=== PATIENT | female | born 1935 | race Caucasian/White ===

== ENCOUNTER 2017-08-30 11:32 | Inpatient (IN) | payer OTHER ==
[~2017-08-30] VITALS: Ht 152.4 cm; Wt 70.1 kg
[~2017-08-30 11:32] MED LIST: NORCO 325 MG-51 TAB PO; PEPCID20 MG PO; WALKER
--- NOTE | 2017-08-30 12:25 | RADIOLOGY REPORT ---
EXAMINATION:\H\ \N\XR CHEST CLINICAL INFORMATION: Febrile cough. COMPARISON: None TECHNIQUE: Frontal view of the chest was obtained. FINDINGS: The lungs are well-expanded with prominent bilateral bronchovascular markings likely small airway disease. No focal consolidation or effusion seen. The heart size and pulmonary vascularity is normal. There is moderate spondylosis dorsal spine. IMPRESSION: Bilateral prominent bronchovascular markings suggestive of reactive airway disease. No acute consolidation or effusion seen.
[2017-08-30 12:28] LABS: ABSOLUTE BASOPHIL COUNT 0 /CUMM (0.0-0.2); ABSOLUTE EOSINOPHIL COUNT 0 /CUMM (0.0-0.7); ABSOLUTE GRANULOCYTE CT 7.5 /CUMM (1.4-6.5); ABSOLUTE LYMPH COUNT 0.7 /CUMM (1.2-3.4); ABSOLUTE MONOCYTE COUNT 0.6 /CUMM (0.10-0.60); BASOPHIL % 0.5 % (0.0-2.0); EOSINOPHIL % 0 % (0-5); HEMATOCRIT 35.9 % (37-47); MEAN CORPUSCULAR HGB CONC 33.6 G/DL (33.0-37.0); MEAN CORPUSCULAR VOLUME 80.5 FL (81.0-99.0); PLATELET COUNT 211 /CUMM (130-400); RBC DISTRIBUTION WIDTH 13.5 % (11.5-14.5); RED BLOOD CELL CT 4.46 /CUMM (4.20-5.40); WHITE BLOOD CELL COUNT 8.8 /CUMM (4.8-10.8)
--- NOTE | 2017-08-30 12:59 | ED DYSPNEA/ASTHMA COMPLAINT ---
History of Present Illness General Chief Complaint: General Adult Stated Complaint: SENT IN BY URGENT CARE FOR ILLNESS Source: patient Exam Limitations: language barrier Vital Signs & Intake/Output Vital Signs & Intake/Output Vital Signs Date Time Temp Pulse Resp B/P B/P Pulse O2 O2 Flow FiO2 Mean Ox Delivery Rate 08/30 1837 99.9 08/30 1807 93 Nasal 2.0L Cannula 08/30 1742 102.7 95 20 128/60 93 Nasal Cannula 08/30 1706 103.0 08/30 1646 103.0 94 24 133/63 96 Nasal 2.0L Cannula 08/30 1457 100.3 108 20 132/61 05/30 1456 108 20 132/61 96 Nasal 2.0L Cannula 08/30 1444 104 20 124/59 96 Nasal 2.0L Cannula 08/30 1425 100.3 150 20 129/62 05/30 1420 150 20 129/62 93 Room Air 08/30 1345 95 / 1300 100.3 106 20 132/62 94 08/30 1253 93 Room Air 08/30 1142 102.3 116 22 126/66 92 Room Air Allergies Coded Allergies: Penicillins (UNKNOWN 08/30/17) soap (MUST USE FRAGRANCE FREE SOAP FOR BODY, HAIR AND LAUNDRY 08/30/17) Reconcile Medications Cholecalciferol (Vitamin D3) (Vitamin D) 1,000 UNIT TABLET 1 TAB PO DAILY SUPPLEMENT (Reported) Lansoprazole 30 MG CAPSULE. 1 CAP PO DAILY GI (Reported) Levothyroxine Sodium 50 MCG TABLET 1 TAB PO DAILY THYROID (Reported) Triage Note: PT SIB URGENT CARE FOR CXR TO R/O PNEUMONIA. PT IS FEBRILE IN TRIAGE, LIGHTHEADED, SOB. DENIES CP Triage Nurses Notes Reviewed? yes Onset: Abrupt Duration: day(s): Timing: recent history Severity: moderate Activities at Onset: none HPI: 82-year-old female comes into emergency room for further evaluation of shortness of breath and cough. Patient reports symptoms began going on for the past couple days. She's had associated fever chills body aches. She denies any chest pain. She has a history of hypothyroid denies any other past medical history. She is a poor historian and there is a language barrier. Friend used for translation. (Audi Agrawal) Past History Travel History Traveled to [place] past 21 day No Medical History Any Pertinent Medical History? see below for history Cardiovascular: MURMUR Gastrointestinal: GERD Endocrine: hypothyroidism Surgical History Surgical History: non-contributory Psychosocial History What is your primary language Bruneian Tobacco Use: Never used ETOH Use: denies use Illicit Drug Use: denies illicit drug use Family History Hx Contributory? No (Audi Agrawal) Review of Systems Review of Systems Constitutional: Reports: no symptoms. EENTM: Reports: no symptoms. Respiratory: Reports: see HPI. Cardiovascular: Reports: see HPI. GI: Reports: no symptoms. Genitourinary: Reports: no symptoms. Musculoskeletal: Reports: no symptoms. Skin: Reports: no symptoms. Neurological/Psychological: Reports: no symptoms. Hematologic/Endocrine: Reports: no symptoms. Immunologic/Allergic: Reports: no symptoms. All Other Systems: Reviewed and Negative (Audi Agrawal) Physical Exam Physical Exam General Appearance: well developed/nourished, alert, awake Head: atraumatic Eyes: Bilateral: normal appearance. Ears, Nose, Throat: normal ENT inspection, hearing grossly normal Neck: normal inspection Respiratory: normal breath sounds, no respiratory distress Cardiovascular: regular rate/rhythm, tachycardia Gastrointestinal: soft Extremities: normal inspection Neurologic/Psych: awake, alert, oriented x 3 Skin: intact, normal color Core Measures ACS in differential dx? No CVA/TIA Diagnosis No Sepsis Present: No Sepsis Focused Exam Completed? No (Audi Agrawal) Progress Differential Diagnosis: asthma, AMI, bronchitis, COPD, pericarditis, pneumonia, pneumothorax Plan of Care: Orders Procedure Date/time Status Heart Healthy Diet 08/31 B Active CBC WITHOUT DIFFERENTIAL 08/31 06 Active BASIC ELECTROLYTES PLUS BUN&CR 08/31 0600 Active Heart Healthy Diet 08/30 D Complete PARTIAL THROMBOPLASTIN TIME 08/30 2100 Active Pathway - chart 08/30 1854 Active House Staff 08/30 1854 Active EKG 08/30 1854 Active Code Status 08/30 1854 Active Heparin Drip- AFIB/FLUTTER/PE/ 08/30 1820 Active STREP PNEUMO URINARY ANTIGEN 08/30 1819 Active LEGIONELLA URINARY ANTIGEN 08/30 1819 Active LOWER RESPIRATORY CULTURE 08/30 1819 Active Weight 08/30 1806 Active Vital Signs 08/30 1806 Active Teach/Educate 08/30 1806 Active Pain Treatment and Response 08/30 1806 Active Nutritional Intake, Monitor 08/30 1806 Active Isolation 08/30 1806 Active Intake & Output 08/30 1806 Active Patient Care Conference 08/30 1806 Active Activity/Ambulation 08/30 1806 Active Vital Signs 08/30 1742 Active LACTIC ACID 08/30 1600 Complete Patient Data 08/30 1542 Active ED Holding Orders 08/30 1515 Active Admit to inpatient 08/30 1515 Active Code Status 08/30 1515 Complete Add-on Test (ER Only) 08/30 1411 Active EKG 08/30 1402 Active AEROSOL (GEN) 08/30 1347 Complete Add-on Test (ER Only) 08/30 1340 Active Intake & Output 08/30 1253 Active PARTIAL THROMBOPLASTIN TIME 08/30 1214 Complete PROTHROMBIN TIME 08/30 1214 Complete LACTIC ACID 08/30 1214 Complete BLOOD CULTURE 08/30 1142 Active TROPONIN LEVEL 08/30 1142 Complete COMPREHENSIVE METABOLIC PANEL 08/30 1142 Complete CBC WITHOUT DIFFERENTIAL 08/30 1142 Complete EKG 08/30 1142 Active BLOOD CULTURE 08/30 1130 Active TRC EVALUATION (GEN) 08/30 UNK Active Current Medications Sig/Denzel Start time Last Medication Dose Stop Time Status Admin Azithromycin 500 MG DAILY 08/31 09 AC (Zithromax) Sodium Chloride 250 ML (Normal Saline 0.9%) Ceftriaxone Sodium 1,000 MG DAILY 08/31 899 AC (Rocephin) Cholecalciferol 400 IU DAILY 08/31 09 AC (Vitamin D) Levothyroxine Sodium 0.05 MG DAILY 08/31 09 AC (Synthroid) Omeprazole 40 MG DAILY AC 08/31 0700 AC (Prilosec) Sodium Chloride 1,000 ML Q13H 08/30 1930 UNVr (Normal Saline 0.9%) Heparin Sodium 25,000 UNIT Q24H 08/30 1430 AC 08/30 (Porcine) 1502 (Heparin) Sodium Chloride 500 ML Laboratory Tests 08/30/17 1630: Lactic Acid 1.1 08/30/17 1300: Lactic Acid Cancelled 08/30/17 1214: Anion Gap 15, Estimated GFR 43 L, BUN/Creatinine Ratio 17.5, Glucose 126 H, Lactic Acid 1.3, Calcium 8.2 L, Total Bilirubin 0.6, AST 25, ALT 24, Alkaline Phosphatase 63, Troponin I 0.06, Total Protein 7.1, Albumin 4.0, Globulin 3.1, Albumin/Globulin Ratio 1.3, PT 14.1 H, INR 1.29 H, APTT 28, CBC w Diff MAN DIFF ORDERED, RBC 4.46, MCV 80.5 L, MCH 27.0, MCHC 33.6, RDW 13.5, MPV 8.0, Gran % 85.0 H, Lymphocytes % 8.2 L, Monocytes % 6.3, Eosinophils % 0, Basophils % 0.5, Absolute Granulocytes 7.5 H, Segmented Neutrophils 74, Band Neutrophils 7 H, Absolute Lymphocytes 0.7 L, Lymphocytes 10 L, Monocytes 8, Absolute Monocytes 0.6, Absolute Eosinophils 0, Basophils 1, Absolute Basophils 0, Platelet Estimate ADEQUATE, Hypochromic-Microcytic 1+ Microbiology 08/30 1818 URINE ROUT: Legionella Antigen - ORD 08/30 1818 URINE ROUT: Streptococcus pneumoniae Antigen (M - ORD 08/30 1818 LOWER RESP: Respiratory Culture - ORD 08/30 1818 LOWER RESP: Gram Stain - ORD 08/30 1356 BLOOD: Blood Culture - RECD 08/30 121 BLOOD: Blood Culture - RECD Diagnostic Imaging: Viewed by Me: Radiology Read. Discussed w/RAD: Radiology Read. Radiology Impression: PATIENT: RADHA WILSON PRESENT AGE: 82 PATIENT ACCOUNT NO: [id number] : 35 LOCATION: [facility] ORDERING PHYSICIAN: Jackson Zamora DO (TBS) SERVICE DATE: 08/30/17 EXAM TYPE: RAD - XRY-CHEST XRAY, SINGLE VIEW EXAMINATION:\H\ \N\XR CHEST CLINICAL INFORMATION: Febrile cough. COMPARISON: None TECHNIQUE: Frontal view of the chest was obtained. FINDINGS: The lungs are well-expanded with prominent bilateral bronchovascular markings likely small airway disease. No focal consolidation or effusion seen. The heart size and pulmonary vascularity is normal. There is moderate spondylosis dorsal spine. IMPRESSION: Bilateral prominent bronchovascular markings suggestive of reactive airway disease. No acute consolidation or effusion seen. DICTATED BY: Nimo SANTANA,Krishan DATE/TIME DICTATED:08/30/171218 PRESS ASSISTANT AND FEEDER:NATALIE DATE/TIME TRANSCRIBED:1218 CONFIDENTIAL, DO NOT COPY WITHOUT APPROPRIATE AUTHORIZATION. < Electronically signed in Other Vendor System> SIGNED BY: Nimo SANTANA,Krishan 1225 Initial ED EKG: normal sinus rhythm, rate (109), nonspecific ST T wave chg Repeat EKG: changed (afib, rate 144) (Audi Agrawal) Departure Departure Disposition: STILL A PATIENT Condition: Stable Clinical Impression Primary Impression: Pneumonia Secondary Impressions: Rapid atrial fibrillation Referrals: Sonam Masters MD (PCP/Family) Departure Forms: Customer Survey General Discharge Information Admission Note Spoke With: Esther Lin MD Documentation of Exam: Documentation of any treatments & extenuating circumstances including Concerns Regarding Discharge (functional status, medication knowledge or non-compliance, living conditions, etc.) that warrant an admission rather than observation: Patient require cardiac telemetry. IV antibiotics. Supplemental oxygen. Pulmonary consult. Cardiology consultation. IV heparin. Serial troponins. Medically not safe for discharge. Patient converted back to normal rhythm after metoprolol but will still require anticoagulation and telemetry. (Audi Agrawal) PA/ROAD GRADER OPERATOR Co-Sign Statement Statement: ED Attending supervision documentation- x I saw and evaluated the patient. I have also reviewed all the pertinent lab results and diagnostic results. I agree with the findings and the plan of care as documented in the PA's/ROAD GRADER OPERATOR's documentation. I have reviewed the ED Record and agree with the PA's/ROAD GRADER OPERATOR's documentation. Is afebrile with the ultimate diagnosis Additions or exceptions (if any) to the PAs/ROAD GRADER OPERATOR's note and plan are summarized below: I evaluated the patient and followed along with her progress including conversion from atrial fibrillation with RVR after her nebulizer treatments to normal sinus rhythm after intravenous metoprolol. I agree with the plan for admission to critical care. Critical care time spent > 30 minutes. The patient was suffering from a critical illness that acutely impairs one or more vital organ systems and there is a high probability of imminent or life threatening deterioration in the patient's condition. During this time I was personally involved in activities including direct delivery of medical care, consulting multiple specialists, and decision making of high complexity to assess, manipulate, and support vital organ system failure (in this case, pneumonia) and/or to prevent further life threatening deterioration of the patient's condition. The failure to initiate these interventions on an urgent basis would likely result in sudden, clinically significant or life threatening deterioration in the patient's condition. (Trip RODRIGUEZ,Berny) Critical Care Note Critical Care Note Critical Care Time: 30-74 min (45) (Horace HERNADEZ,Audi)
[2017-08-30 14:36] LABS: PT 14.1 SEC (9.4-12.5); PTT 28 SEC (25-37)
[2017-08-30] MEDS ORDERED: LANSOPRAZOLE30 M2 PO (16:21)
[2017-08-30] MEDS ORDERED: LEVOTHYROXINE50 MCG PO (16:22)
[2017-08-30] MEDS ORDERED: VITAMIN D1000 UNIT PO (16:22)
[2017-08-30 17:42] VITALS: BP 128/60
--- NOTE | 2017-08-30 18:39 | History & Physical ---
Eden SANTANA,Leona 08/30/17 7349: General Information and HPI MD Statement: I have seen and personally examined RADHA ALCALA and documented this H&P. The patient is a 82 year old F who presented with a patient stated chief complaint of [weakness, productive cough]. Source of Information: patient, family Exam Limitations: language barrier History of Present Illness: Patient is an Turkish speaking only 82-year-old female with past medical history of hypothyroidism, stage I diastolic dysfunction, asthma, status post cholecystectomy, history of bronchitis presenting this admission with chief complaint of weakness, productive cough. Patient's sister was present at the time of the interview. She reports patient has been feeling increasing weak over the past few days. Reports a 2 day history of productive cough with yellow/green sputum and fever. Reports she had called patient's physician who told her to come to the ED however patient refused. Patient's sister took her to an urgent care facility where she was diagnosed with pneumonia and told to come to the ED. Patient denies chest pain, palpitations, lightheadedness, dizziness, n/v/c/d, abodminal pain, hematuria/dysuria. Patient lives by herself next to her sister. Denies recent sick contacts, recent travel. Denies smoking, alcohol use, illicit drug use. Patient in the ED was found to be in rapid atrial fibrillation. Patient was started on an IV heparin drip. Received metoprolol, IV Ceftriaxone, IV Azithromycin, DuoNeb, IV NS bolus. Allergies/Medications Allergies: Coded Allergies: Penicillins (UNKNOWN 08/30/17) soap (MUST USE FRAGRANCE FREE SOAP FOR BODY, HAIR AND LAUNDRY 08/30/17) Home Med list Cholecalciferol (Vitamin D3) (Vitamin D) 1,000 UNIT TABLET 1 TAB PO DAILY SUPPLEMENT (Reported) Lansoprazole 30 MG CAPSULE.DR 1 CAP PO DAILY GI (Reported) Levothyroxine Sodium 50 MCG TABLET 1 TAB PO DAILY THYROID (Reported) Past History Travel History Traveled to [place] past 21 day No Medical History Blood Transfusion Hx: No Neurological: NONE EENT: NONE Cardiovascular: MURMUR Respiratory: NONE Gastrointestinal: GERD Hepatic: NONE Renal: NONE Musculoskeletal: NONE Psychiatric: NONE Endocrine: hypothyroidism Blood Disorders: NONE Cancer(s): NONE BOILER SHOP SUPERVISOR/Reproductive: NONE Isolation History: Standard Surgical History Surgical History: appendectomy, cholecystectomy Past Family/Social History Psychosocial History Where do you live? Home Smoking Status: Never Smoked ETOH Use: denies use Illicit Drug Use: denies illicit drug use Review of Systems Review of Systems Constitutional: Reports: see HPI. Exam & Diagnostic Data Last 24 Hrs of Vital Signs/I&O Vital Signs Date Time Temp Pulse Resp B/P B/P Pulse O2 O2 Flow FiO2 Mean Ox Delivery Rate 08/30 2138 Nasal 2.0L Cannula 08/30 1837 99.9 08/30 1807 93 Nasal 2.0L Cannula 08/30 1742 102.7 95 20 128/60 93 Nasal Cannula 08/30 1706 103.0 08/30 1646 103.0 94 24 133/63 96 Nasal 2.0L Cannula 08/30 1457 100.3 108 20 132/61 08/30 1456 108 20 132/61 96 Nasal 2.0L Cannula 08/30 1444 104 20 124/59 96 Nasal 2.0L Cannula 08/30 1425 100.3 150 20 129/62 08/30 1420 150 20 129/62 93 Room Air 08/30 1345 95 08/30 1300 100.3 106 20 132/62 94 08/30 1253 93 Room Air 08/30 1142 102.3 116 22 126/66 92 Room Air Intake & Output 08/30 1600 08/30 0800 08/30 0000 Intake Total 0 Output Total Balance 0 Intake, Oral 0 Patient 145 lb Weight Weight Reported by Patient Measurement Method Physical Exam General Appearance Alert, Oriented X3, Cooperative, No Acute Distress Skin No Rashes Skin Temp/Moisture Exam: Warm/Dry Sepsis Skin Exam (color): Normal for Ethnicity HEENT Atraumatic, Mucous Membr. moist/pink Cardiovascular Normal S1, Normal S2, irregular heart rhythm Lungs bilateral rhonchi Abdomen Normal Bowel Sounds, Soft, No Tenderness Neurological Normal Speech, Cranial Nerves 3-12 NL Extremities No Clubbing, No Cyanosis, No Edema, Normal Pulses, No Tenderness/ Swelling Last 24 Hrs of Labs/Rod: Laboratory Tests 08/30/17 1630: Lactic Acid 1.1 08/30/17 1300: Lactic Acid Cancelled 08/30/17 1214: Anion Gap 15, Estimated GFR 43 L, BUN/Creatinine Ratio 17.5, Glucose 126 H, Lactic Acid 1.3, Calcium 8.2 L, Total Bilirubin 0.6, AST 25, ALT 24, Alkaline Phosphatase 63, Troponin I 0.06, Total Protein 7.1, Albumin 4.0, Globulin 3.1, Albumin/Globulin Ratio 1.3, PT 14.1 H, INR 1.29 H, APTT 28, CBC w Diff MAN DIFF ORDERED, RBC 4.46, MCV 80.5 L, MCH 27.0, MCHC 33.6, RDW 13.5, MPV 8.0, Gran % 85.0 H, Lymphocytes % 8.2 L, Monocytes % 6.3, Eosinophils % 0, Basophils % 0.5, Absolute Granulocytes 7.5 H, Segmented Neutrophils 74, Band Neutrophils 7 H, Absolute Lymphocytes 0.7 L, Lymphocytes 10 L, Monocytes 8, Absolute Monocytes 0.6, Absolute Eosinophils 0, Basophils 1, Absolute Basophils 0, Platelet Estimate ADEQUATE, Hypochromic-Microcytic 1+ Microbiology 08/30 1818 URINE ROUT: Legionella Antigen - COLB 08/30 1818 URINE ROUT: Streptococcus pneumoniae Antigen (M - COLB 08/30 1818 LOWER RESP: Respiratory Culture - COLB 08/30 1818 LOWER RESP: Gram Stain - COLB 08/30 1356 BLOOD: Blood Culture - RECD 08/30 1214 BLOOD: Blood Culture - RECD Assessment/Plan Assessment: Patient is an Turkish speaking only 82-year-old female with past medical history of hypothyroidism, stage I diastolic dysfunction, asthma, status post cholecystectomy, history of bronchitis presenting this admission with chief complaint of weakness, productive cough. Patient will be admitted to telemetry for management of the followin. New onset atrial fibrillation likely precipitated by pneumonia 2. Community acquired pneumonia 3. Chronic considitions: hypothyroidism, stage 1 diastolic dysfunction, severe aortic stenosis,asthma Plan: Admit to telemetry Continuous tele monitoring Vitals qshift Repeat CBC in am Repeat BEP in am IV heparin drip Rate controlled with metoprolol 25 mg PO x1 and IV lopressor 5mg push x1. If rate >110- can give IV lopressor push Follow up blood cultures, sputum cultures Follow up legionella and strep urine antigen Continue IV Ceftriaxone and Azithromycin TRC/DuoNeb treatements Cardiology consult in AM DVT PPx: IV Heparin Diet: Heart Healthy Code: DNR/DNI As Ranked By This Provider Problem List: 1. Rapid atrial fibrillation 2. Pneumonia Core Measures/Misc (12/18) Acute Coronary Syndrome ACS Diagnosis: No Congestive Heart Failure Congestive Heart Failure Diagnosis No Cerebrovascular Accident CVA/TIA Diagnosis: No VTE (View Protocol) VTE Risk Factors Age>40 No Mechanical VTE Prophylaxis d/t N/A MechProphylax Ordered No VTE Pharm Prophylaxis d/t NA PharmProphylax ordered Sepsis (View protocol) Sepsis Present: No If YES complete Sepsis Event Note If YES complete Sepsis Event Note Tyron Lynne 08/30/17 2226: Core Measures/Misc (12/18) Sepsis (View protocol) If YES complete Sepsis Event Note If YES complete Sepsis Event Note Resident Review Statement Other Findings: Ms. Alcala is an 82-year-old female with significant past medical history of hypothyroidism and severe aortic stenosis followed by Dr. Finley with most recent echocardiogram May showing stage I diastolic dysfunction with ejection fraction 65%. Severe aortic stenosis [aortic valve area 0.6 cm, peak velocity 4.05 m/s, mean gradient 38mmHg] of note she did not have any left atrial enlargement on the echocardiogram. She presents with cough, fever and dyspnea over the last few days. She was found to be febrile, MAXIMUM TEMPERATURE 103 and had low O2 saturations. A chest x-ray showed bilateral prominent bronchovascular markings however did not show any significant notable consolidation. Chest x-ray was personally reviewed , questionable left lower lobe haziness. Aside from the aforementioned symptoms, the patient denies any chest pain, lightheadedness, palpitations. She denies any skipped beats. When questioned if she had any cardiac symptoms at all during her age fibrillation, she states she did not, and she was unaware of her rapid heart rate. At the highest, her heart rate was in the 150s, she was treated with IV metoprolol 1 and by mouth metoprolol as well and converted to normal sinus rhythm. Vitals on admission temperature 102.3, pulse rate 116, respiratory 22, 126/66, 92% on 2 L. Physical exam as dictated above with note of diffuse rhonchi bilaterally, systolic murmur louder at the base appreciated without radiation to the carotid. No abdominal tenderness. No lower extremity swelling Labs as dictated above, CBC unremarkable, electrolytes unremarkable, BUNs/ creatinine 21/1.2, lactic acid negative 2, troponin 0.06, troponin 2 pending. Problem list/assessment and plan Atrial fibrillation with rapid ventricular response * Admit the patient to telemetry given her new atrial fibrillation * Most likely her A. fib is secondary to her infection, especially with the most recent echo showing no atrial enlargement. * Overall her [id number] is 3, and she was started on IV heparin in the ER. * And do not believe that she has had an ischemic event leading to her atrial fibrillation, and this is most likely secondary to her pneumonia. * We will treat with ceftriaxone and azithromycin * Blood cultures drawn in the ER. We will perform lower respiratory culture, urine strep and urine Legionella. * We will continue fluid hydration as she was quite febrile and did have insensible losses. * Additionally, given her rhonchi/wheezing, we will also consider bronchodilator therapy. * If the patient does become tachycardic again, consider a repeat dose of metoprolol either intravenous, 2.5 mg or 25 by mouth. * We will place a cardiology consult tomorrow and repeat troponin at 9 PM along with EKG. Chronic medical problems including GERD and hypothyroidism * Continue home medications, levothyroxine 50 g and omeprazole 40 mg daily DNR/DNI Heart healthy diet Alps for DVT prophylaxis Pain pathway as ordered Esther Lin MD 08/31/17 1137: Core Measures/Misc (12/18) Sepsis (View protocol) If YES complete Sepsis Event Note If YES complete Sepsis Event Note Attending MD Review Statement Attending Statement Attending MD Statement: examined this patient, discuss w/resident/PA/ECONOMIC DEVELOPMENT SPECIALIST, agreed w/resident/PA/ECONOMIC DEVELOPMENT SPECIALIST, reviewed EMR data (avail) Attending Assessment/Plan: 82F PMH hypothyroidism and severe aortic stenosis followed by Dr. Finley with most recent echocardiogram May showing stage I diastolic dysfunction with ejection fraction 65% presenting with shortness of breath and cough with CXR showing bilateral lower lobe reactive airway disease, given Albuterol in ER which provoked new onset atrial fibrillation, rapid initially but rate improved, hemodynamically stable. 1. New onset atrial fibrillation 2. Acute bronchitis Plan - Admit to telemetry - Ceftriaxone and Azithromycin - Sputum culture - Start Metoprolol - Heparin drip - Echocardiogram - Cardiology consult - Cotninue home medications - DVT PPx
[2017-08-30 22:53] VITALS: BP 118/48
[2017-08-30 23:30] LABS: PTT > 120 SEC (25-37)
[2017-08-31 06:53] VITALS: BP 126/62
--- NOTE | 2017-08-31 07:10 | PN- Housestaff ---
Karley Mitchell 08/31/17 0709: Subjective Follow-up For: -Sepsis with postive SIRS criteria, possible source pnuemonia -A fib with RVR -Severe Aortic stenosis -Hypothyroidism Complaints: no complaints Tele-Events Since Last Visit: episode of possible a flutter versus a fib overnight with heart rate going into 150's Subjective: I have seen and examined the patient today morning, her family was at bedside, she seems to be doing fine, converses mainly an Iraqi, did not have any new complaints to offer. Review of Systems Constitutional: Reports: see HPI. Objective Last 24 Hrs of Vital Signs/I&O Vital Signs Date Time Temp Pulse Resp B/P B/P Pulse O2 O2 Flow FiO2 Mean Ox Delivery Rate 08/31 0653 98.4 84 20 126/62 98 Nasal Cannula 08/31 0550 95 Nasal 2.0L Cannula 08/30 2253 98.9 96 20 118/48 97 Nasal Cannula 08/30 2225 Nasal 2.0L Cannula 08/30 2138 Nasal 2.0L Cannula 08/30 1837 99.9 08/30 1807 93 Nasal 2.0L Cannula 08/30 1742 102.7 95 20 128/60 93 Nasal Cannula 08/30 1706 103.0 08/30 1646 103.0 94 24 133/63 96 Nasal 2.0L Cannula 08/30 1457 100.3 108 20 132/61 08/30 1456 108 20 132/61 96 Nasal 2.0L Cannula 08/30 1444 104 20 124/59 96 Nasal 2.0L Cannula 08/30 1425 100.3 150 20 129/62 08/30 1420 150 20 129/62 93 Room Air 08/30 1345 95 08/30 1300 100.3 106 20 132/62 94 08/30 1253 93 Room Air 08/30 1142 102.3 116 22 126/66 92 Room Air Intake & Output 08/31 0800 08/31 0000 08/30 1600 Intake Total 750 300 0 Output Total 475 Balance 275 300 0 Intake, IV 550 300 Intake, Oral 200 0 Output, Urine 475 Patient 66.224 kg 65.771 kg Weight Weight Reported by Patient Reported by Patient Measurement Method Physical Exam General Appearance: Alert, Oriented X3, Cooperative, No Acute Distress Skin: No Rashes, No Breakdown, euvolemic HEENT: Atraumatic, PERRLA, EOMI Neck: Supple, No JVD, No thryomegaly Cardiovascular: Regular Rate, Normal S1, Normal S2 Lungs: bilateral rhonchi Abdomen: Normal Bowel Sounds, Soft, No Tenderness Extremities: No Clubbing Current Medications: Current Medications Sig/Denzel Start time Last Medication Dose Route Stop Time Status Admin Acetaminophen 0 .STK-MED ONE 08/30 1711 DC PO Acetaminophen 975 MG ONCE ONE 08/30 1700 DC 08/30 PO 08/30 1701 1706 Albuterol Sulfate 3 ML BID 08/31 0900 AC 08/31 INH 0540 Albuterol Sulfate 3 ML ONCE ONE 08/30 1300 DC 08/30 INH 08/30 1301 1345 Azithromycin 500 MG DAILY 08/31 09 AC Sodium Chloride 250 ML IV Azithromycin 500 MG ONCE ONE 08/30 1300 DC 08/30 Sodium Chloride 250 ML IV 08/30 1359 1430 Ceftriaxone Sodium 1,000 MG DAILY 08/31 0900 AC IV Ceftriaxone Sodium 0 .STK-MED ONE 08/30 1401 DC .ROUTE Ceftriaxone Sodium 1,000 MG ONCE ONE 08/30 1300 DC 08/30 IV 08/30 1301 1405 Cholecalciferol 400 IU DAILY 08/31 0900 AC PO Heparin Sodium 0 .STK-MED ONE 08/30 1459 DC (Porcine) .ROUTE Heparin Sodium 4,000 UNIT ONCE ONE 08/30 1430 DC 08/30 (Porcine) IV 08/30 1431 1457 Heparin Sodium 25,000 UNIT Q24H 08/30 1430 AC 08/30 (Porcine) IV 1502 Sodium Chloride 500 ML Ipratropium [place] 2.5 ML ONCE ONE 08/30 1300 DC 08/30 INH 08/30 1301 1345 Levothyroxine Sodium 0.05 MG DAILY 08/31 0900 AC PO Metoprolol Tartrate 0 .STK-MED ONE 08/30 1458 DC PO Metoprolol Tartrate 5 MG ONCE ONE 08/30 1430 DC 08/30 IV 08/30 1431 1425 Metoprolol Tartrate 0 .STK-MED ONE 08/30 1430 DC IV Metoprolol Tartrate 25 MG ONCE ONE 08/30 1430 DC 08/30 PO 08/30 1431 1457 Omeprazole 40 MG DAILY AC 08/31 0700 AC 08/31 PO 0532 Sodium Chloride 1,000 ML Q13H 08/30 1930 AC IV Sodium Chloride 1,000 ML BOLUS ONE 08/30 1300 DC 08/30 IV 08/30 1359 1313 Sodium Chloride 1,000 ML BOLUS ONE 08/30 1300 DC 08/30 IV 08/30 1359 1545 Last 24 Hrs of Lab/Rod Results Last 24 Hrs of Labs/Mics: Laboratory Tests 08/31/17 0612: Sodium Pending, Potassium Pending, Chloride Pending, Carbon Dioxide Pending, Anion Gap Pending, BUN Pending, Creatinine Pending, BUN/Creatinine Ratio Pending , Troponin I Pending, APTT Pending, CBC w Diff Pending, WBC Pending, RBC Pending , Hgb Pending, Hct Pending, MCV Pending, MCH Pending, MCHC Pending, RDW Pending, Plt Count Pending, MPV Pending 08/30/17 2230: Troponin I 0.10, APTT > 120 *H 08/30/17 1630: Lactic Acid 1.1 08/30/17 1300: Lactic Acid Cancelled 08/30/17 1214: Anion Gap 15, Estimated GFR 43 L, BUN/Creatinine Ratio 17.5, Glucose 126 H, Lactic Acid 1.3, Calcium 8.2 L, Total Bilirubin 0.6, AST 25, ALT 24, Alkaline Phosphatase 63, Troponin I 0.06, Total Protein 7.1, Albumin 4.0, Globulin 3.1, Albumin/Globulin Ratio 1.3, PT 14.1 H, INR 1.29 H, APTT 28, CBC w Diff MAN DIFF ORDERED, RBC 4.46, MCV 80.5 L, MCH 27.0, MCHC 33.6, RDW 13.5, MPV 8.0, Gran % 85.0 H, Lymphocytes % 8.2 L, Monocytes % 6.3, Eosinophils % 0, Basophils % 0.5, Absolute Granulocytes 7.5 H, Segmented Neutrophils 74, Band Neutrophils 7 H, Absolute Lymphocytes 0.7 L, Lymphocytes 10 L, Monocytes 8, Absolute Monocytes 0.6, Absolute Eosinophils 0, Basophils 1, Absolute Basophils 0, Platelet Estimate ADEQUATE, Hypochromic-Microcytic 1+ Microbiology 08/30 1818 URINE ROUT: Legionella Antigen - COLB 08/30 1818 URINE ROUT: Streptococcus pneumoniae Antigen (M - COLB 08/30 1818 LOWER RESP: Respiratory Culture - COLB 05/30 1819 LOWER RESP: Gram Stain - COLB 08/30 1356 BLOOD: Blood Culture - RECD 08/30 1214 BLOOD: Blood Culture - RECD Lines/Diet/Fluids Restraints: none Assessment/Plan Assessment: Ms. Posadas is an Iraqi speaking 82-year-old female who came in with chief complaint of weakness and productive cough. Past medical history significant for hypothyroidism, stage I diastolic dysfunction, asthma, previous cholecystectomy, history of bronchitis. Her increased weakness and productive cough has been going on 2-3 days prior to presentation associated with yellow-green sputum and fever. On arrival she had Tmax of 103, pulse of 150, respiration of 20, blood pressure 129/62, she was saturating 96% on 2 L of nasal cannula. Relevant labs white count of 9.0 with 7 bands, 85% granulocytes, H/H of 12.1/ 35.9, MCV 80.5, platelets of 211. Electrolytes within normal limit BUN/creatinine 21/1.2 Chest x-ray showed bilateral prominent bronchovascular markings suggestive of reactive airway disease without any consolidation or effusion. Recent echocardiogram done 08/09/2017 showed ejection fraction greater than 65% with stage I diastolic dysfunction, no obvious regional wall motion abnormality, diffuse thickening of aortic valve cusp with reduced excursion and severe aortic stenosis, right ventricular systolic pressure mildly elevated to 35-40. Her tic valve area was 0.6 cm with a peak velocity 4.05 m/s, mean gradient 38 mmHg. The troponin3 were negative. Problem list along with assessment and plan #1 atrial fibrillation with rapid ventricular response : Ct library monitor, her atrial fibrillation could be secondary to her infection, overall her [id number] score is 3, continue IV heparin, started on rate control with po cardizem 30 q6 (shortage of iv cardizem), cardiology consult appreciated. ( ( Earlier she did receive one time of 25 mg by mouth Lopressor, one time of IV 5 mg Lopressor or rate control).please look at the note below. #2 Suspected Pneumonia : Patient was started on IV ceftriaxone and azithromycin for suspected pneumonia due to presentation of cough, fever, bandemia, tachycardia,however chest x-ray was negative for any findings, this could be possible if the pneumonia is in early stage, continue IV ceftriaxone and azithromycin, continue to monitor vitals, continue IV hydration. #3 Aortic Stenosis : severe aortic stenosis with wall diameter of 0.6 cm, cardiology on board. #4 Hypothyroidism :tsh, ft4 within normal limit, ct current dose of synthroid. Note : At around 4:40 PM, patient was found to have increased heart rate around 140s to 150s, a 12-lead EKG was done, the EKG showed atrial fibrillation with a rate of 141, and Dr. Finley was contacted, and he reviewed the 12-lead EKG and confirmed that the patient was indeed in atrial fibrillation, IV heparin was restarted and by mouth Cardizem 30 every 6 was started for rate control. If overnight patient is found to have increased rate, consider one-time of IV Lopressor pushes to reduce the rate. Problem List: 1. Rapid atrial fibrillation 2. Pneumonia 3. Right leg pain 4. Nonspecific abdominal pain Pain Ratin Pain Location: NONE Pain Goal: Remain pain free Pain Plan: CURRENT PLAN Tomorrow's Labs & Rationales: CBC, BEP, MG Discharge Plan Discharge Disposition: home Stable for Discharge? No Anticipated Discharge (Day): two days Marlen SANTANA,Flori 08/31/17 1119: Attending MD Review Statement Attending Statement Attending MD Statement: examined this patient, discuss w/resident/PA/CASHIER CREDIT, agreed w/resident/PA/CASHIER CREDIT, discussed with family, reviewed EMR data (avail), discussed with nursing, discussed with case mgmt, reviewed images Attending Assessment/Plan: 82-year-old Iraqi speaking female, past medical history of severe aortic stenosis, follows with Dr. Jamil Kohler as an outpatient. She is here with what appears to be a community-acquired pneumonia as evidenced by fever, cough and coarse crackles on lung exam. In the ER she was going very rapid and the thought was that she was in rapid A. fib. She is on IV heparin and we are watching the rate. Dr. Finley will see her officially later today but he, in his preliminary report feels that this was just tachycardia and not A. fib. In the meantime will follow up on the sputum cultures and blood cultures, continue the ceftriaxone and azithromycin follow closely.
[2017-08-31 08:29] LABS: PTT 79 SEC (25-37)
[2017-08-31 08:51] LABS: ABSOLUTE BASOPHIL COUNT 0 /CUMM (0.0-0.2); ABSOLUTE EOSINOPHIL COUNT 0 /CUMM (0.0-0.7); ABSOLUTE GRANULOCYTE CT 8.4 /CUMM (1.4-6.5); ABSOLUTE LYMPH COUNT 1.8 /CUMM (1.2-3.4); ABSOLUTE MONOCYTE COUNT 0.7 /CUMM (0.10-0.60); BASOPHIL % 0.2 % (0.0-2.0); EOSINOPHIL % 0.2 % (0-5); GRANULOCYTE % 76.8 % (42.2-75.2); HEMATOCRIT 33.3 % (37-47); MEAN CORPUSCULAR HGB 27.2 PG (27.0-31.0); MEAN CORPUSCULAR HGB CONC 33.4 G/DL (33.0-37.0); MEAN CORPUSCULAR VOLUME 81.5 FL (81.0-99.0); MEAN PLATELET VOLUME 9.2 FL (7.4-10.4); PLATELET COUNT 163 /CUMM (130-400); RBC DISTRIBUTION WIDTH 13.5 % (11.5-14.5); RED BLOOD CELL CT 4.08 /CUMM (4.20-5.40); WHITE BLOOD CELL COUNT 10.9 /CUMM (4.8-10.8)
--- NOTE | 2017-08-31 10:05 | Cons- Cardiology ---
General Information and HPI Consulting Request Date of Consult: 08/31/17 Requested By: Esther Lin MD Reason for Consult: Shortness of breath, bronchitis, pneumonia, question atrial fibrillation. Known severe aortic stenosis. Source of Information: patient, family, old records Exam Limitations: language barrier History of Present Illness: Radha Alcala is an 82-year-old female who I have seen in the distant past. She was hospitalized in 2006 with complaints of dizziness and vertigo. An echocardiogram showed mild aortic stenosis. The patient is asymptomatic from a cardiac standpoint. She denies chest pain, shortness of breath, palpitations, orthopnea, PND, dizziness, or syncope. She does not have hypertension or diabetes. She is a nonsmoker, and does not drink significant amounts of alcohol. She is only on levothyroxine and lansoprazole. At the time of her original visit, I thought her aortic stenosis was at least moderate by exam and ordered an echocardiogram. Unfortunately, for reasons probably of communication with the sister, who is the POA, the echo never got scheduled or done. In the interim she has remained asymptomatic and again is still on no cardiac medications. She has had no intercurrent illnesses. Subsequently I reordered her echo which she had just recently and it showed actually pretty severe aortic stenosis with a peak gradient of 66 mmHg. She is now admitted with acute respiratory illness, severe shortness of breath, probably a tracheobronchitis versus early pneumonia. Her initial EKG in the ED showed sinus rhythm but a subsequent EKG showed sinus tachycardia with frequent PACs and short SVT runs. This was initially thought to be atrial fibrillation but does not appear to be. Allergies/Medications Allergies: Coded Allergies: Penicillins (UNKNOWN 08/30/17) soap (MUST USE FRAGRANCE FREE SOAP FOR BODY, HAIR AND LAUNDRY 08/30/17) Home Med List: Cholecalciferol (Vitamin D3) (Vitamin D) 1,000 UNIT TABLET 1 TAB PO DAILY SUPPLEMENT (Reported) Lansoprazole 30 MG CAPSULE. 1 CAP PO DAILY GI (Reported) Levothyroxine Sodium 50 MCG TABLET 1 TAB PO DAILY THYROID (Reported) Current Medications: Current Medications Sig/Denzel Start time Last Medication Dose Route Stop Time Status Admin Acetaminophen 0 .STK-MED ONE 08/30 1711 DC PO Acetaminophen 975 MG ONCE ONE 08/30 1700 DC 08/30 PO 08/30 1701 1706 Albuterol Sulfate 3 ML BID 08/31 0900 AC 08/31 INH 1033 Albuterol Sulfate 3 ML ONCE ONE 08/30 1300 DC 08/30 INH 08/30 1301 1345 Azithromycin 500 MG DAILY 08/31 0900 AC 08/31 Sodium Chloride 250 ML IV 0954 Azithromycin 500 MG ONCE ONE 08/30 1300 DC 08/30 Sodium Chloride 250 ML IV 08/30 1359 1430 Ceftriaxone Sodium 1,000 MG DAILY 08/31 0900 AC 08/31 IV 0953 Ceftriaxone Sodium 0 .STK-MED ONE 08/30 1401 DC .ROUTE Ceftriaxone Sodium 1,000 MG ONCE ONE 08/30 1300 DC 08/30 IV 08/30 1301 1405 Cholecalciferol 400 IU DAILY 08/31 0900 AC 08/31 PO 0954 Heparin Sodium 0 .STK-MED ONE 08/30 1459 DC (Porcine) .ROUTE Heparin Sodium 4,000 UNIT ONCE ONE 08/30 1430 DC 08/30 (Porcine) IV 08/30 1431 1457 Heparin Sodium 25,000 UNIT Q24H 08/30 1430 AC 08/30 (Porcine) IV 1502 Sodium Chloride 500 ML Ipratropium [place] 2.5 ML ONCE ONE 08/30 1300 DC 08/30 INH 08/30 1301 1345 Levothyroxine Sodium 0.05 MG 0600 09/01 0600 AC PO Levothyroxine Sodium 0.05 MG DAILY 08/31 0900 DC 08/31 PO 0953 Metoprolol Tartrate 0 .STK-MED ONE 08/30 1458 DC PO Metoprolol Tartrate 5 MG ONCE ONE 08/30 1430 DC 08/30 IV 08/30 1431 1425 Metoprolol Tartrate 0 .STK-MED ONE 08/30 1430 DC IV Metoprolol Tartrate 25 MG ONCE ONE 08/30 1430 DC 08/30 PO 08/30 1431 1457 Omeprazole 40 MG DAILY AC 08/31 0700 AC 08/31 PO 0532 Sodium Chloride 1,000 ML Q13H 08/30 1930 AC IV Sodium Chloride 1,000 ML BOLUS ONE 08/30 1300 DC 08/30 IV 08/30 1359 1313 Sodium Chloride 1,000 ML BOLUS ONE 08/30 1300 DC 08/30 IV 08/30 1359 1545 Review of Systems Review of Systems: No other complaints Past History Travel History Traveled to [place] past 21 day No Medical History Blood Transfusion Hx: No Neurological: NONE EENT: NONE Cardiovascular: MURMUR Respiratory: NONE Gastrointestinal: GERD Hepatic: NONE Renal: NONE Musculoskeletal: NONE Psychiatric: NONE Endocrine: hypothyroidism Blood Disorders: NONE Cancer(s): NONE 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 Home Smoking Status: Never Smoked ETOH Use: denies use Illicit Drug Use: denies illicit drug use Exam & Diagnostic Data Vital Signs and I&O Vital Signs Date Time Temp Pulse Resp B/P B/P Pulse O2 O2 Flow FiO2 Mean Ox Delivery Rate 08/31 0653 98.4 84 20 126/62 98 Nasal Cannula 08/31 0550 95 Nasal 2.0L Cannula 08/30 2253 98.9 96 20 118/48 97 Nasal Cannula 08/30 2225 Nasal 2.0L Cannula 08/30 2138 Nasal 2.0L Cannula 08/30 1837 99.9 08/30 1807 93 Nasal 2.0L Cannula 08/30 1742 102.7 95 20 128/60 93 Nasal Cannula 08/30 1706 103.0 08/30 1646 103.0 94 24 133/63 96 Nasal 2.0L Cannula 08/30 1457 100.3 108 20 132/61 08/30 1456 108 20 132/61 96 Nasal 2.0L Cannula 08/30 1444 104 20 124/59 96 Nasal 2.0L Cannula 08/30 1425 100.3 150 20 129/62 / 1420 150 20 129/62 93 Room Air 08/30 1345 95 08/30 1300 100.3 106 20 132/62 94 08/30 1253 93 Room Air 08/30 1142 102.3 116 22 126/66 92 Room Air Intake & Output 08/31 1600 08/31 0800 08/31 0000 08/30 1600 08/30 0800 08/30 0000 Intake Total 750 300 0 Output Total 475 Balance 275 300 0 Intake, IV 550 300 Intake, Oral 200 0 Output, Urine 475 Patient 146 lb 145 lb Weight Weight Reported by Patient Reported by Patient Measurement Method Physical Exam: Elderly female in no acute distress, sitting in chair. HEENT exam is normal Neck veins not distended Carotids normal Chest diffuse rhonchi and some mild expiratory wheezing. Heart regular rhythm, prominent systolic ejection murmur at the base radiating to the neck. Abdomen benign Extremities no edema, pulses present Labs/Rod Results: Laboratory Tests 08/31 08/30 08/30 0612 2230 1630 Chemistry Sodium (137 - 145 mmol/L) 142 Potassium (3.5 - 5.1 mmol/L) 3.5 Chloride (98 - 107 mmol/L) 103 Carbon Dioxide (22 - 30 mmol/L) 28 Anion Gap (5 - 16) 11 BUN (7 - 17 mg/dL) 20 H Creatinine (0.5 - 1.0 mg/dL) 1.0 Estimated GFR (>60 ml/min) 53 L BUN/Creatinine Ratio (7 - 25 %) 20.0 Lactic Acid (0.7 - 2.1 mmol/L) 1.1 Troponin I (< 0.11 ng/ml) 0.06 0.10 TSH (0.270 - 4.200 uIU/mL) 2.340 Free T4 (0.85 - 1.93 ng/dL) 1.51 Coagulation APTT (25 - 37 SEC) 79 H > 120 *H Hematology CBC w Diff NO MAN DIFF REQ WBC (4.8 - 10.8 /CUMM) 10.9 H RBC (4.20 - 5.40 /CUMM) 4.08 L Hgb (12.0 - 16.0 G/DL) 11.1 L Hct (37 - 47 %) 33.3 L MCV (81.0 - 99.0 FL) 81.5 MCH (27.0 - 31.0 PG) 27.2 MCHC (33.0 - 37.0 G/DL) 33.4 RDW (11.5 - 14.5 %) 13.5 Plt Count (130 - 400 /CUMM) 163 MPV (7.4 - 10.4 FL) 9.2 Gran % (42.2 - 75.2 %) 76.8 H Lymphocytes % (20.5 - 51.1 %) 16.2 L Monocytes % (1.7 - 9.3 %) 6.6 Eosinophils % (0 - 5 %) 0.2 Basophils % (0.0 - 2.0 %) 0.2 Absolute Granulocytes (1.4 - 6.5 /CUMM) 8.4 H Absolute Lymphocytes (1.2 - 3.4 /CUMM) 1.8 Absolute Monocytes (0.10 - 0.60 /CUMM) 0.7 H Absolute Eosinophils (0.0 - 0.7 /CUMM) 0 Absolute Basophils (0.0 - 0.2 /CUMM) 0 08/30 08/30 1300 1214 Chemistry Sodium (137 - 145 mmol/L) 140 Potassium (3.5 - 5.1 mmol/L) 3.9 Chloride (98 - 107 mmol/L) 97 L Carbon Dioxide (22 - 30 mmol/L) 27 Anion Gap (5 - 16) 15 BUN (7 - 17 mg/dL) 21 H Creatinine (0.5 - 1.0 mg/dL) 1.2 H Estimated GFR (>60 ml/min) 43 L BUN/Creatinine Ratio (7 - 25 %) 17.5 Glucose (65 - 99 mg/dL) 126 H Lactic Acid (0.7 - 2.1 mmol/L) Cancelled 1.3 Calcium (8.4 - 10.2 mg/dL) 8.2 L Total Bilirubin (0.2 - 1.3 mg/dL) 0.6 AST (14 - 36 U/L) 25 ALT (9 - 52 U/L) 24 Alkaline Phosphatase (<127 U/L) 63 Troponin I (< 0.11 ng/ml) 0.06 Total Protein (6.3 - 8.2 g/dL) 7.1 Albumin (3.5 - 5.0 g/dL) 4.0 Globulin (1.9 - 4.2 gm/dL) 3.1 Albumin/Globulin Ratio (1.1 - 2.2 %) 1.3 Coagulation PT (9.4 - 12.5 SEC) 14.1 H INR (0.90 - 1.19) 1.29 H APTT (25 - 37 SEC) 28 Hematology CBC w Diff MAN DIFF ORDERED WBC (4.8 - 10.8 /CUMM) 8.8 RBC (4.20 - 5.40 /CUMM) 4.46 Hgb (12.0 - 16.0 G/DL) 12.1 Hct (37 - 47 %) 35.9 L MCV (81.0 - 99.0 FL) 80.5 L MCH (27.0 - 31.0 PG) 27.0 MCHC (33.0 - 37.0 G/DL) 33.6 RDW (11.5 - 14.5 %) 13.5 Plt Count (130 - 400 /CUMM) 211 MPV (7.4 - 10.4 FL) 8.0 Gran % (42.2 - 75.2 %) 85.0 H Lymphocytes % (20.5 - 51.1 %) 8.2 L Monocytes % (1.7 - 9.3 %) 6.3 Eosinophils % (0 - 5 %) 0 Basophils % (0.0 - 2.0 %) 0.5 Absolute Granulocytes (1.4 - 6.5 /CUMM) 7.5 H Segmented Neutrophils (42.2 - 75.2 %) 74 Band Neutrophils (0.0 - 5.0 %) 7 H Absolute Lymphocytes (1.2 - 3.4 /CUMM) 0.7 L Lymphocytes (20.5 - 51.1 %) 10 L Monocytes (1.7 - 9.3 %) 8 Absolute Monocytes (0.10 - 0.60 /CUMM) 0.6 Absolute Eosinophils (0.0 - 0.7 /CUMM) 0 Basophils (0.0 - 2.0 %) 1 Absolute Basophils (0.0 - 0.2 /CUMM) 0 Platelet Estimate (ADEQUATE) ADEQUATE Hypochromic-Microcytic 1+ Diagnostic Data EKG Results Initial EKG yesterday 11:44 AM shows sinus tachycardia rate of 109, left ventricular hypertrophy. Repeat EKG at 1408 showed sinus tachycardia with multiple PACs and a rate of [address] depression. Repeat at 1946 showed sinus rhythm with rate of 76 with no ectopy and less ST changes. CXR Results PATIENT: RADHA ALCALA PRESENT AGE: 82 PATIENT ACCOUNT NO: [id number] : 35 LOCATION: [facility] ORDERING PHYSICIAN: Jackson Zamora (TBS) SERVICE DATE: 08/30/17 EXAM TYPE: RAD - XRY-CHEST XRAY, SINGLE VIEW EXAMINATION:\H\ \N\XR CHEST CLINICAL INFORMATION: Febrile cough. COMPARISON: None TECHNIQUE: Frontal view of the chest was obtained. FINDINGS: The lungs are well-expanded with prominent bilateral bronchovascular markings likely small airway disease. No focal consolidation or effusion seen. The heart size and pulmonary vascularity is normal. There is moderate spondylosis dorsal spine. IMPRESSION: Bilateral prominent bronchovascular markings suggestive of reactive airway disease. No acute consolidation or effusion seen. DICTATED BY: Krishan Suero MD DATE/TIME DICTATED:08/30/171218 PRIVATE WEALTH ADVISOR:NATALIE DATE/TIME TRANSCRIBED:08/30/171218 CONFIDENTIAL, DO NOT COPY WITHOUT APPROPRIATE AUTHORIZATION. <Electronically signed in Other Vendor System> SIGNED BY: Krishan Suero MD 08/30/17 1225 Assessment/Plan Assessment/Plan The patient has an 82-year-old female who presents with a respiratory illness, probably early pneumonia versus a bronchitic type illness. She was symptomatic with shortness of breath. When she presented in the ED she had periods of tachycardia with irregularity, but looking at the EKG it is clearly not atrial fibrillation but sinus tachycardia with PACs and short runs of SVT. Her enzymes are negative. She has known severe aortic stenosis but this does not seem to be related to this current illness. I would recommend at this time that the patient's heparin be discontinued as there is no clear-cut evidence that she has has had atrial fibrillation either now or in the past. Otherwise appropriate treatment for her bronchitis/ pneumonia is being instituted and should be continued. She certainly seems improved today from a symptomatic standpoint. She is basically on no cardiac medications at home I do not think she needs anything at this time as her blood pressures are normal. We will follow her to assure that her rhythm is stable and then after 24 hours if she has no arrhythmias telemetry can be discontinued. Consult Acknowledgment - Thank you for your consult request.
[2017-08-31 14:19] VITALS: BP 112/42
--- NOTE | 2017-08-31 18:09 | Event Note ---
Event Note Event Note: Situation : Patient in A fib with rate in 150's Brief : At around 4:40 PM, patient was found to have increased heart rate around 140s to 150s, a 12-lead EKG was done, the EKG showed atrial fibrillation with a rate of 141, and Dr. Finley was contacted, and he reviewed the 12-lead EKG and confirmed that the patient was indeed in atrial fibrillation, IV heparin was restarted and by mouth Cardizem 30 every 6 was started for rate control.If overnight patient is found to have increased rate, consider one-time doses of IV Lopressor pushes to reduce the rate as indicated. Assessment : patient in A fib with RVR, no chest pain, no acute complaints. Plan : will start iv heparin, will start po cardizem 30 q6 ( no iv cardizem available), ct to monitor. plan discussed with shirrer Dr Finley.If overnight patient is found to have increased rate, consider one-time doses of IV Lopressor pushes to reduce the rate as indicated.
--- NOTE | 2017-08-31 20:29 | RADIOLOGY REPORT ---
EXAMINATION: XR PORTABLE CHEST CLINICAL INFORMATION: 82-year-old woman with fluid overload. COMPARISON: 08/30/2017 chest radiograph TECHNIQUE: Portable frontal view of the chest was obtained. FINDINGS: There is mild interstitial pulmonary edema. Borderline cardiomegaly is unchanged. There may be small bilateral effusions. IMPRESSION: Mild interstitial pulmonary edema, probably with small bilateral effusions.
[2017-08-31 23:15] VITALS: BP 112/64
[2017-09-01 01:09] LABS: PTT 48 SEC (25-37)
[2017-09-01 06:45] VITALS: BP 112/66
--- NOTE | 2017-09-01 07:20 | PN- Housestaff ---
PaulaAshleighjed 09/01/17 0719: Subjective Follow-up For: -Sepsis with postive SIRS criteria, possible source pnuemonia -A fib with RVR -Severe Aortic stenosis -Hypothyroidism Complaints: no complaints Tele-Events Since Last Visit: NSR, 75 to 80 Subjective: I have seen and examined the patient today morning, she is doing fine. no new complaints, had breakfast fine, overnight has been rate controlled. Review of Systems Constitutional: Reports: see HPI. Objective Last 24 Hrs of Vital Signs/I&O Vital Signs Date Time Temp Pulse Resp B/P B/P Pulse O2 O2 Flow FiO2 Mean Ox Delivery Rate 09/01 0645 98.3 89 20 112/66 96 Room Air 09/01 0618 89.0 116/66 09/01 0053 95 112/64 09/01 0000 Nasal 1.0L Cannula 08/31 2315 99.3 95 18 112/64 96 Nasal Cannula 08/31 1910 90 Room Air 08/31 1841 144 116/66 08/31 1707 152 126/78 08/31 1600 Room Air 08/31 1419 98.4 102 20 112/42 92 Nasal 2.0L Cannula 08/31 1033 94 Nasal 2.0L Cannula 08/31 0800 98 Nasal 2.0L Cannula Intake & Output 09/01 0800 09/01 0000 08/31 1600 Intake Total 166.1 300 1187 Output Total 850 100 Balance 166.1 -550 1087 Intake, IV 166.1 587 Intake, Oral 300 600 Number 0 1 Bowel Movements Output, Urine 850 100 Patient 68.237 kg Weight Physical Exam General Appearance: Alert, Oriented X3, Cooperative, No Acute Distress Skin: No Rashes, No Breakdown, No Significant Lesion HEENT: Atraumatic, PERRLA, EOMI Neck: Supple, No JVD, No thryomegaly Cardiovascular: Normal S1, Normal S2, No Murmurs Lungs: Normal Air Movement, basal crackles Abdomen: Normal Bowel Sounds, Soft, No Tenderness Neurological: Normal Speech, Strength at 5/5 X4 Ext, Normal Tone, Sensation Intact Extremities: No Clubbing, No Cyanosis Current Medications: Current Medications Sig/Denzel Start time Last Medication Dose Route Stop Time Status Admin Albuterol Sulfate 3 ML BID 08/31 899 AC 08/31 INH 1910 Azithromycin 500 MG DAILY 08/31 899 AC 08/31 Sodium Chloride 250 ML IV 0954 Ceftriaxone Sodium 1,000 MG DAILY 08/31 0900 AC 08/31 IV 0953 Cholecalciferol 400 IU DAILY 08/31 0900 AC 08/31 PO 0954 Diltiazem HCl 30 MG Q6 08/31 1800 DC PO Diltiazem HCl 30 MG Q6 08/31 1715 AC 09/01 PO 0618 Heparin Sodium 2,720 UNIT ONCE ONE 09/01 0145 DC 09/01 (Porcine) IV 09/01 0146 0220 Heparin Sodium 25,000 UNIT Q24H 09/01 0115 AC 09/01 (Porcine) IV 0122 Sodium Chloride 500 ML Heparin Sodium 25,000 UNIT Q24H 08/31 1645 DC 08/31 (Porcine) IV 1700 Sodium Chloride 500 ML Heparin Sodium 25,000 UNIT Q24H 08/30 1430 DC 08/30 (Porcine) IV 1502 Sodium Chloride 500 ML Levothyroxine Sodium 0.05 MG 0600 09/01 0600 AC 09/01 PO 0619 Levothyroxine Sodium 0.05 MG DAILY 08/31 0900 DC 08/31 PO 0953 Metoprolol Tartrate 5 MG ONCE ONE 08/31 1830 DC 08/31 IV 08/31 1831 1841 Omeprazole 40 MG DAILY AC 08/31 0700 AC 09/01 PO 0619 Patient Medication 1 ED ONE ONE 08/31 1630 DC Teaching ED 08/31 1631 Potassium Chloride 40 MEQ ONCE ONE 08/31 1700 DC 08/31 PO 08/31 1701 1833 Sodium Chloride 1,000 ML Q13H 08/31 1630 DC IV 09/01 0529 Sodium Chloride 1,000 ML Q13H 08/30 1930 DC IV Last 24 Hrs of Lab/Rod Results Last 24 Hrs of Labs/Mics: Laboratory Tests 09/01/17 0651: Sodium Pending, Potassium Pending, Chloride Pending, Carbon Dioxide Pending, Anion Gap Pending, BUN Pending, Creatinine Pending, BUN/Creatinine Ratio Pending , Magnesium Pending, APTT Pending, CBC w Diff Pending, WBC Pending, RBC Pending, Hgb Pending, Hct Pending, MCV Pending, MCH Pending, MCHC Pending, RDW Pending, Plt Count Pending, MPV Pending 09/01/17 0025: APTT 48 H Microbiology 08/31 1535 NASOPHARYN: Influenza Virus A & B Rapid Smear - COMP 08/31 1400 URINE ROUT: Legionella Antigen - COMP 08/31 1400 URINE ROUT: Streptococcus pneumoniae Antigen (M - COMP 08/31 1120 LOWER RESP: Respiratory Culture - RES 08/31 1120 LOWER RESP: Gram Stain - RES 08/31 1116 LOWER RESP: Respiratory Culture - CAN Cancelled: DUPLICATE ORDER 08/31 111 LOWER RESP: Gram Stain - CAN Cancelled: DUPLICATE ORDER Lines/Diet/Fluids Restraints: none Assessment/Plan Assessment: Ms. Posadas is an Swedish speaking 82-year-old female who came in with chief complaint of weakness and productive cough. Past medical history significant for hypothyroidism, stage I diastolic dysfunction, asthma, previous cholecystectomy, history of bronchitis. Her increased weakness and productive cough has been going on 2-3 days prior to presentation associated with yellow-green sputum and fever. On arrival she had Tmax of 103, pulse of 150, respiration of 20, blood pressure 129/62, she was saturating 96% on 2 L of nasal cannula. Relevant labs white count of 9.0 with 7 bands, 85% granulocytes, H/H of 12.1/ 35.9, MCV 80.5, platelets of 211. Electrolytes within normal limit BUN/creatinine 21/1.2 Chest x-ray showed bilateral prominent bronchovascular markings suggestive of reactive airway disease without any consolidation or effusion. Recent echocardiogram done 08/09/2017 showed ejection fraction greater than 65% with stage I diastolic dysfunction, no obvious regional wall motion abnormality, diffuse thickening of aortic valve cusp with reduced excursion and severe aortic stenosis, right ventricular systolic pressure mildly elevated to 35-40. Her tic valve area was 0.6 cm with a peak velocity 4.05 m/s, mean gradient 38 mmHg. The troponin3 were negative. 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 #2 Suspected Pneumonia : Patient was started on IV ceftriaxone and azithromycin for suspected pneumonia due to presentation of cough, fever, bandemia, tachycardia,legionella and pnuemonia, flu antigen negative -continue IV ceftriaxone and azithromycin, continue to monitor vitals. #3 Aortic Stenosis : severe aortic stenosis with wall diameter of 0.6 cm, cardiology on board. #4 Hypothyroidism :tsh, ft4 within normal limit, ct current dose of synthroid. dnr/dni heart healthy diet dvt px with eliquis Problem List: 1. Free fluid in pelvis 2. Rapid atrial fibrillation 3. Pneumonia Pain Ratin Pain Location: none Pain Goal: Remain pain free Pain Plan: .. Tomorrow's Labs & Rationales: mary Gee MD,Flori 09/01/17 1348: Attending MD Review Statement Attending Statement Attending MD Statement: examined this patient, discuss w/resident/PA/MID LEVEL DEVELOPER, agreed w/resident/PA/MID LEVEL DEVELOPER, discussed with family, reviewed EMR data (avail), discussed with nursing, discussed with case mgmt, reviewed images Attending Assessment/Plan: Overall patient feels better today and has no O2 requirement. Off note she went into rapid A. fib last evening and was started again on IV heparin and needed Cardizem for rate control. I talked to Dr. Jamil Kohlre and we are going to do Cardizem 30 every 6 with Eliquis 5 twice a day given that she is having these runs of atrial fibrillation. We'll continue to treat her pneumonia, TRC with nebs and follow closely.
[2017-09-01 08:17] LABS: ABSOLUTE BASOPHIL COUNT 0 /CUMM (0.0-0.2); ABSOLUTE EOSINOPHIL COUNT 0.1 /CUMM (0.0-0.7); ABSOLUTE GRANULOCYTE CT 8.2 /CUMM (1.4-6.5); ABSOLUTE LYMPH COUNT 1.9 /CUMM (1.2-3.4); ABSOLUTE MONOCYTE COUNT 0.7 /CUMM (0.10-0.60); BASOPHIL % 0.4 % (0.0-2.0); EOSINOPHIL % 0.9 % (0-5); GRANULOCYTE % 74.6 % (42.2-75.2); HEMATOCRIT 30.9 % (37-47); MEAN CORPUSCULAR HGB 27.3 PG (27.0-31.0); MEAN CORPUSCULAR HGB CONC 33.5 G/DL (33.0-37.0); MEAN CORPUSCULAR VOLUME 81.4 FL (81.0-99.0); MEAN PLATELET VOLUME 9.3 FL (7.4-10.4); PLATELET COUNT 157 /CUMM (130-400); RBC DISTRIBUTION WIDTH 13.9 % (11.5-14.5); RED BLOOD CELL CT 3.79 /CUMM (4.20-5.40)
[2017-09-01 08:18] LABS: PTT 82 SEC (25-37)
--- NOTE | 2017-09-01 10:07 | PN- Cardiology ---
Subjective Subjective: At about 4:00 yesterday afternoon the patient went into atrial fibrillation, which was pretty pretty clear-cut on the electrocardiogram. She was started back on IV heparin, given IV Lopressor and oral Cardizem and converted back to sinus rhythm in a couple of hours. She has remained in sinus rhythm overnight. She is a little more comfortable with her breathing but still has significant rhonchi and wheezing. Objective Vital Signs and I&Os Vital Signs Date Time Temp Pulse Resp B/P B/P Pulse O2 O2 Flow FiO2 Mean Ox Delivery Rate 09/01 0914 95 Nasal 1.0L Cannula 09/01 0645 98.3 89 20 112/66 96 Room Air 09/01 0618 89.0 116/66 09/01 0053 95 112/64 09/01 0000 Nasal 1.0L Cannula 08/31 2315 99.3 95 18 112/64 96 Nasal Cannula 08/31 1910 90 Room Air 08/31 1841 144 116/66 08/31 1707 152 126/78 08/31 1600 Room Air 08/31 1419 98.4 102 20 112/42 92 Nasal 2.0L Cannula 08/31 1033 94 Nasal 2.0L Cannula Intake & Output 09/01 1600 09/01 0800 09/01 0000 08/31 1600 08/31 0800 08/31 0000 Intake Total 166.1 300 1187 750 300 Output Total 850 100 475 Balance 166.1 -550 1087 275 300 Intake, IV 166.1 587 550 300 Intake, Oral 300 600 200 Number 0 1 Bowel Movements Output, Urine 850 100 475 Patient 150 lb 146 lb Weight Weight Reported by Patient Measurement Method Physical Exam: No distress HEENT exam normal Chest diffuse rhonchi and some expiratory wheezing Heart systolic ejection murmur at the base, regular rhythm Current Medications: Current Medications Sig/Denzel Start time Last Medication Dose Route Stop Time Status Admin Albuterol Sulfate 3 ML BID 08/31 899 AC 09/01 INH 0912 Azithromycin 500 MG DAILY 08/31 899 AC 09/01 Sodium Chloride 250 ML IV 08 Ceftriaxone Sodium 1,000 MG DAILY 08/31 899 AC 09/01 IV 0805 Cholecalciferol 400 IU DAILY 08/31 899 AC 09/01 PO 0805 Diltiazem HCl 30 MG Q6 08/31 1800 DC PO Diltiazem HCl 30 MG Q6 08/31 1715 AC 09/01 PO 0618 Heparin Sodium 2,720 UNIT ONCE ONE 09/01 0145 DC 09/01 (Porcine) IV 09/01 0146 0220 Heparin Sodium 25,000 UNIT Q24H 09/01 0115 AC 09/01 (Porcine) IV 0122 Sodium Chloride 500 ML Heparin Sodium 25,000 UNIT Q24H 08/31 1645 DC 08/31 (Porcine) IV 1700 Sodium Chloride 500 ML Heparin Sodium 25,000 UNIT Q24H 08/30 1430 DC 08/30 (Porcine) IV 1502 Sodium Chloride 500 ML Levothyroxine Sodium 0.05 MG 0600 09/01 0600 09/01 PO 0619 Levothyroxine Sodium 0.05 MG DAILY 08/31 0900 DC 08/31 PO 0953 Metoprolol Tartrate 5 MG ONCE ONE 08/31 1830 DC 08/31 IV 08/31 1831 1841 Omeprazole 40 MG DAILY AC 08/31 0700 AC 09/01 PO 0619 Patient Medication 1 ED ONE ONE 08/31 1630 DC Teaching ED 08/31 1631 Potassium Chloride 40 MEQ ONCE ONE 08/31 1700 DC 08/31 PO 08/31 1701 1833 Sodium Chloride 1,000 ML Q13H 08/31 1630 DC IV 09/01 0529 Sodium Chloride 1,000 ML Q13H 08/30 1930 DC IV Results Last 48 Hrs of Labs/Mics: Laboratory Tests 09/01/17 0651: Anion Gap 9, Estimated GFR 60, BUN/Creatinine Ratio 17.8, Magnesium 1.9, APTT 82 H, CBC w Diff NO MAN DIFF REQ, RBC 3.79 L, MCV 81.4, MCH 27.3, MCHC 33.5, RDW 13.9, MPV 9.3, Gran % 74.6, Lymphocytes % 17.6 L, Monocytes % 6.5, Eosinophils % 0.9, Basophils % 0.4, Absolute Granulocytes 8.2 H, Absolute Lymphocytes 1.9, Absolute Monocytes 0.7 H, Absolute Eosinophils 0.1, Absolute Basophils 0 09/01/17 0025: APTT 48 H 08/31/17 0612: Anion Gap 11, Estimated GFR 53 L, BUN/Creatinine Ratio 20.0, Magnesium 1.8, Troponin I 0.06, TSH 2.340, Free T4 1.51, APTT 79 H, CBC w Diff NO MAN DIFF REQ , RBC 4.08 L, MCV 81.5, MCH 27.2, MCHC 33.4, RDW 13.5, MPV 9.2, Gran % 76.8 H, Lymphocytes % 16.2 L, Monocytes % 6.6, Eosinophils % 0.2, Basophils % 0.2, Absolute Granulocytes 8.4 H, Absolute Lymphocytes 1.8, Absolute Monocytes 0.7 H, Absolute Eosinophils 0, Absolute Basophils 0 08/30/17 2230: Troponin I 0.10, APTT > 120 *H 08/30/17 1630: Lactic Acid 1.1 08/30/17 1300: Lactic Acid Cancelled 08/30/17 1214: Anion Gap 15, Estimated GFR 43 L, BUN/Creatinine Ratio 17.5, Glucose 126 H, Lactic Acid 1.3, Calcium 8.2 L, Total Bilirubin 0.6, AST 25, ALT 24, Alkaline Phosphatase 63, Troponin I 0.06, Total Protein 7.1, Albumin 4.0, Globulin 3.1, Albumin/Globulin Ratio 1.3, PT 14.1 H, INR 1.29 H, APTT 28, CBC w Diff MAN DIFF ORDERED, RBC 4.46, MCV 80.5 L, MCH 27.0, MCHC 33.6, RDW 13.5, MPV 8.0, Gran % 85.0 H, Lymphocytes % 8.2 L, Monocytes % 6.3, Eosinophils % 0, Basophils % 0.5, Absolute Granulocytes 7.5 H, Segmented Neutrophils 74, Band Neutrophils 7 H, Absolute Lymphocytes 0.7 L, Lymphocytes 10 L, Monocytes 8, Absolute Monocytes 0.6, Absolute Eosinophils 0, Basophils 1, Absolute Basophils 0, Platelet Estimate ADEQUATE, Hypochromic-Microcytic 1+ Microbiology 08/31 1535 NASOPHARYN: Influenza Virus A & B Rapid Smear - COMP 08/31 1400 URINE ROUT: Legionella Antigen - COMP 08/31 1400 URINE ROUT: Streptococcus pneumoniae Antigen (M - COMP Recent Imaging Studies: PATIENT: RADHA WILSON PRESENT AGE: 82 PATIENT ACCOUNT NO: [id number] : 35 LOCATION: [facility] ORDERING PHYSICIAN: Julio Mariee MD SERVICE DATE: 08/31/17 EXAM TYPE: RAD - XRY-PORTABLE CHEST XRAY EXAMINATION: XR PORTABLE CHEST CLINICAL INFORMATION: 82-year-old woman with fluid overload. COMPARISON: 08/30/2017 chest radiograph TECHNIQUE: Portable frontal view of the chest was obtained. FINDINGS: There is mild interstitial pulmonary edema. Borderline cardiomegaly is unchanged. There may be small bilateral effusions. IMPRESSION: Mild interstitial pulmonary edema, probably with small bilateral effusions. DICTATED BY: Cassi Del Angel MD DATE/TIME DICTATED:08/31/172024 DEPUTY ATTORNEY GENERAL:NATALIE DATE/TIME TRANSCRIBED:08/31/172024 CONFIDENTIAL, DO NOT COPY WITHOUT APPROPRIATE AUTHORIZATION. <Electronically signed in Other Vendor System> SIGNED BY: Cassi Del Angel MD 08/31/172028 Assessment/Plan Assessment/Plan The patient had a definite episode of atrial fibrillation lasting a few hours, but is now back in sinus rhythm. She is on IV heparin. This can be changed to oral anticoagulation with Eliquis. I would continue her on oral Cardizem for now. I would avoid beta blockers long-term because of her bronchospastic component. Hopefully she will remain stable from a rhythm standpoint. I will follow her up in the office for this. Continue telemetry? Yes
[2017-09-01 14:34] VITALS: BP 120/60
[2017-09-01] MEDS ORDERED: CARDIZEM CD120 M2 PO (16:03)
[2017-09-01] MEDS ORDERED: ELIQUIS5 M1 PO (16:03)
--- NOTE | 2017-09-01 16:04 | Patient Discharge Instructions ---
Discharge Instructions General Discharge Information You were seen/treated for: A FIB WITH RVR Special Instructions: Please follow up with Dr. Finley in 1 week. Please follow up with your PCP within one week of discharge. Please continue to take your medications as prescribed. -New Medications: - Azithromycin - Diltiazem - Eliquis Acute Coronary Syndrome Inclusion Criteria At DC or during hospital stay patient has or had the following: ACS DIAGNOSIS No Discharge Core Measures Meds if any: Prescribed or Continued at Discharge Meds if any: NOT Prescribed or Continued at Discharge Congestive Heart Failure Inclusion Criteria At DC or during hospital stay patient has or had the following: CHF DIAGNOSIS No Discharge Core Measures Meds if any: Prescribed or Continued at Discharge Meds if any: NOT Prescribed or Continued at Discharge Cerebrovascular accident Inclusion Criteria At DC or during hospital stay patient has or had the following: CVA/TIA Diagnosis No Discharge Core Measures Meds if any: Prescribed or Continued at Discharge Meds if any: NOT Prescribed or Continued at Discharge Venous thromboembolism Inclusion Criteria VTE Diagnosis No VTE Type NONE VTE Confirmed by (Test) NONE Discharge Core Measures - Per Current guidelines, there needs to be overlap - treatment for the first 5 days of Warfarin therapy. - If discharged on Warfarin prior to 5 days of - overlap therapy, the patient will need to be - assessed for post discharge needs including - *Post discharge parental anticoagulation - *Warfarin and/or parental anticoagulation education - *Follow up date to check INR post discharge At least 5 days overlap therapy as Inpatient No Meds if any: Prescribed or Continued at Discharge Note: Overlap Therapy is Warfarin and Anticoagulant Meds if any: NOT Prescribed or Continued at Discharge
--- NOTE | 2017-09-01 16:45 | Discharge Summary ---
Visit Information Visit Dates Admission Date: 08/30/17 Discharge Date: 09/03/17 Hospital Course Course Attending Physician: Marlen SANTANA,Flori Navarro Primary Care Physician: Sonam SANTANA,Sonam Hospital Course: Ms Ferraro is an British speaking 82-year-old female with past medical history significant for hypothyroidism, stage I diastolic dysfunction, asthma, previous cholecystectomy, history of bronchitis,severe aortic stenosis came in to [facility] emergency department on August 30, 2018 with chief complaint of weakness, productive cough. She presented with cough, fever and dyspnea a few days prior to admission. At the emergency department she was found to have T-max of 103, pulse rate of 116, respiration of 22, blood pressure 126/66, she was 92% saturating on 2 L. Relevant labs white count of 9.0, H/H of 12.1/35.9, platelet of 211. Sodium at 140, potassium of 3.9, BUN/creatinine 21/1.2, calcium of 8.2, glucose of 126. She also had some segmented neutrophils and 7 bands on presentation. Chest x-ray showed bilateral prominent bronchovascular markings suggestive of reactive airway disease without any consolidation or effusion. Recent echocardiogram done on 08/09/2017 showed ejection fraction greater than 65% with stage I diastolic dysfunction, no obvious wall motion abnormality, diffuse thickening of the aortic valve cusp with reduced excursion and severe aortic stenosis, right ventricular systolic pressure mildly elevated to 35-40. Her aortic valve area was found to be 0.6 cm with a peak velocity of 4.05 m/s , and gradient of 38 mmHg. Troponin 3 was negative. She was admitted to cardiac telemetry for further treatment of following problems. Problem #1 atrial fibrillation with rapid ventricular rate. * It was thought that her atrial fibrillation was possibly secondary to her infection.Her [id number] score was found to be 3, she was started on IV heparin, rate control was done with p.o. Cardizem 30 every 6, cardiology was on board. * The initial ED EKG had tachycardia with irregularity however the EKG did not clearly show atrial fibrillation therefore initially the IV heparin was discontinued however subsequently on day 2 she was actually found to be in atrial fibrillation therefore IV heparin was restarted which was latter transitioned to p.o. Eliquis upon discharge. * Upon discharge she was transitioned to 120 mg of Cardizem CD for rate control. Repeat echo showed a normal left ventricular size, EF greater than 65%, stage I diastolic dysfunction, RVSP 35-40mmHg,severe aortic stenosis with AV area od 0.6cm2.She is to follow up with Dr. Joe upon discharge. #2 Community Acquired pnuemonia. * Patient did have mild white count with bandemia with a T-max of 103. * Even though chest x-ray was negative for findings of consolidation, she met SIRS criteria and with her productive cough and change in sputum and overall clinical presentation, she was begin treatment for community-acquired pneumonia with IV ceftriaxone and azithromycin. * Initially she was given hydrated, urine Legionella and strep pneumonia antigens were negative. * Respiratory cultures grew yeast and enterococcus sensitive to ampicillin and vancomycin. * Rapid Flu was negative. * Blood cultures didnot show any growth after 5 days.She completed a total of 7 days of antibiotic course. #3 Aortic Stenosis. * She was found to have severe aortic stenosis with wall diameter of 0.6 cm. * Cardiology was on board. * On repeat echo with Dr. Finley, she was found to have severe aortic stenosis with a peak gradient of 66 mmHg. #4 Hypothyroidism. * TSH and free T4 were rechecked while in the hospital, they were found to be within normal limits therefore her home dosage of Synthroid was continued. Allergies: Coded Allergies: Penicillins (UNKNOWN 08/30/17) soap (MUST USE FRAGRANCE FREE SOAP FOR BODY, HAIR AND LAUNDRY 08/30/17) Significant Procedures: SERVICE DATE: 08/30/17 EXAM TYPE: RAD - XRY-CHEST XRAY, SINGLE VIEW EXAMINATION:\H\ \N\XR CHEST CLINICAL INFORMATION: Febrile cough. COMPARISON: None TECHNIQUE: Frontal view of the chest was obtained. FINDINGS: The lungs are well-expanded with prominent bilateral bronchovascular markings likely small airway disease. No focal consolidation or effusion seen. The heart size and pulmonary vascularity is normal. There is moderate spondylosis dorsal spine. IMPRESSION: Bilateral prominent bronchovascular markings suggestive of reactive airway disease. No acute consolidation or effusion seen. SERVICE DATE: 08/31/17 EXAM TYPE: RAD - XRY-PORTABLE CHEST XRAY EXAMINATION: XR PORTABLE CHEST CLINICAL INFORMATION: 82-year-old woman with fluid overload. COMPARISON: 08/30/2017 chest radiograph TECHNIQUE: Portable frontal view of the chest was obtained. FINDINGS: There is mild interstitial pulmonary edema. Borderline cardiomegaly is unchanged. There may be small bilateral effusions. IMPRESSION: Mild interstitial pulmonary edema, probably with small bilateral effusions. Disposition Summary Disposition Principal Diagnosis: #1 Atrial fibrillation with rapid ventricular rate. #2 Community Acquired pnuemonia. #3 Severe Aortic Stenosis. Additional Diagnosis: #4 Hypothyroidism. Discharge Disposition: home or self care Discharge Instructions General Discharge Information Code Status: Full Code Patient's Diet: Heart Healthy Patient's Activity: As tolerated. Follow-Up Instructions/Appts: Please follow up with Dr. Finley in 1 week. Please follow up with your PCP within one week of discharge. Please continue to take your medications as prescribed. -New Medications: - Azithromycin - Diltiazem - Eliquis Medications at Discharge Discharge Medications: Continue taking these medications: Lansoprazole (Lansoprazole) 30 MG CAPSULE.DR 1 Capsule ORAL DAILY Qty = 90 Comments: Last Taken: 09/03/17 Time: 6:20 AM OMEPRAZOLE GIVEN IN HOSPITAL Levothyroxine Sodium (Levothyroxine Sodium) 50 MCG TABLET 1 Tablet ORAL DAILY Qty = 90 Comments: Last Taken: 09/03/17 Time: 6:20 AM Cholecalciferol (Vitamin D3) (Vitamin D) 1,000 UNIT TABLET 1 Tablet ORAL DAILY Comments: Last Taken: 09/03/17 Time: 9:00 AM Start taking the following new medications: Apixaban (Eliquis) 5 MG TABLET 1 Tablet ORAL TWICE DAILY Qty = 30 No Refills Instructions: . Comments: Last Taken: 09/03/17 Time: 9:00 AM Diltiazem HCl (Cardizem Cd) 120 MG CAP.ER.24H 1 Tablet ORAL DAILY Qty = 60 No Refills Instructions: . Comments: Last Taken: 09/03/17 Time: 9:00 AM Azithromycin (Azithromycin) 250 MG TABLET 1 Dose Pack ORAL As Directed Qty = 3 No Refills Comments: NOT GIVEN IN HOSPITAL STARTING AT DISCHARGE Albuterol Sulfate (Proair Hfa) 90 MCG HFA.AER.AD 2 Puff Inhale through mouth EVERY 4-6 HOURS NEEDED as needed for ASTHMA Qty = 1 No Refills Copies To: Sonam SANTANA,Milton Finley MD,Stef Valencia Attending MD Review Statement Documenting Attending: Marlen SANTANA,Flori Navarro
[2017-09-01 22:00] VITALS: BP 126/64
[2017-09-02 06:54] VITALS: BP 110/68
--- NOTE | 2017-09-02 09:11 | PN- Housestaff ---
Eden SANTANA,Leona 09/02/17 0911: Subjective Follow-up For: Sepsis with postive SIRS criteria, possible source pnuemonia A fib with RVR Severe Aortic stenosis Hypothyroidism Tele-Events Since Last Visit: NSR: HR 70s to 90s Subjective: Patient was seen and examined today. Reports mild cough. Denies any other symptoms. No acute events overnight Review of Systems Constitutional: Reports: see HPI. Objective Last 24 Hrs of Vital Signs/I&O Vital Signs Date Time Temp Pulse Resp B/P B/P Pulse O2 O2 Flow FiO2 Mean Ox Delivery Rate 09/02 0924 95 Room Air 09/02 0654 98.2 84 20 110/68 96 Nasal 2.0L Cannula 09/02 0522 84 122/70 09/01 2325 89 126/64 09/01 2243 Nasal 1.0L Cannula 09/01 2200 98.4 101 18 126/64 97 Nasal Cannula 09/01 2039 96 Nasal 1.0L Cannula 09/01 1653 126/60 09/01 1434 98.2 95 18 120/60 93 01 1137 90 110/64 Intake & Output 09/02 1600 09/02 0800 09/02 0000 Intake Total 240 200 Output Total 500 300 Balance -260 -100 Intake, Oral 240 200 Output, Urine 500 300 Patient 151 lb Weight Weight Bed scale Measurement Method Physical Exam General Appearance: Alert, Cooperative, No Acute Distress Skin: No Rashes Skin Temp/Moisture Exam: Warm/Dry Sepsis Skin Exam (color): Normal for Ethnicity HEENT: Atraumatic, Mucous Membr. moist/pink Cardiovascular: Regular Rate, Normal S1, Normal S2 Lungs: coarse breath sounds bilaterally Abdomen: Normal Bowel Sounds, Soft, No Tenderness Neurological: Normal Speech, Cranial Nerves 3-12 NL Extremities: No Clubbing, No Cyanosis, No Edema, Normal Pulses, No Tenderness/ Swelling Vascular: Normal Pulses, Pulses Symmetrical Current Medications: Current Medications Sig/Denzel Start time Last Medication Dose Route Stop Time Status Admin Acetaminophen 325 MG ONCE ONE 09/01 2044 DC 09/01 PO 09/01 Albuterol Sulfate 3 ML BID 08/31 899 AC 09/02 INH 0919 Apixaban 5 MG BID 09/01 1130 AC 09/02 PO 1008 Azithromycin 500 MG DAILY 08/31 899 AC 09/02 Sodium Chloride 250 ML IV 1008 Ceftriaxone Sodium 1,000 MG DAILY 08/31 0900 AC 09/02 IV 1008 Cholecalciferol 400 IU DAILY 08/31 0900 AC 09/02 PO 1007 Diltiazem HCl 30 MG Q6 08/31 1715 AC 09/02 PO 0522 Heparin Sodium 25,000 UNIT Q24H 09/01 0115 DC 09/01 (Porcine) IV 0122 Sodium Chloride 500 ML Levothyroxine Sodium 0.05 MG 0609/01 0600 AC 09/02 PO 0519 Omeprazole 40 MG DAILY AC 08/31 0700 AC 09/02 PO 0519 Last 24 Hrs of Lab/Rod Results Last 24 Hrs of Labs/Mics: Laboratory Tests 09/02/17 0620: Anion Gap 9, Estimated GFR 53 L, BUN/Creatinine Ratio 18.0 Assessment/Plan Assessment: Ms. Posadas is an Albanian speaking 82-year-old female who came in with chief complaint of weakness and productive cough. Past medical history significant for hypothyroidism, stage I diastolic dysfunction, asthma, previous cholecystectomy, history of bronchitis. Her increased weakness and productive cough has been going on 2-3 days prior to presentation associated with yellow-green sputum and fever. On arrival she had Tmax of 103, pulse of 150, respiration of 20, blood pressure 129/62, she was saturating 96% on 2 L of nasal cannula. Relevant labs white count of 9.0 with 7 bands, 85% granulocytes, H/H of 12.1/ 35.9, MCV 80.5, platelets of 211. Electrolytes within normal limit BUN/creatinine 21/1.2 Chest x-ray showed bilateral prominent bronchovascular markings suggestive of reactive airway disease without any consolidation or effusion. Recent echocardiogram done 08/09/2017 showed ejection fraction greater than 65% with stage I diastolic dysfunction, no obvious regional wall motion abnormality, diffuse thickening of aortic valve cusp with reduced excursion and severe aortic stenosis, right ventricular systolic pressure mildly elevated to 35-40. Her tic valve area was 0.6 cm with a peak velocity 4.05 m/s, mean gradient 38 mmHg. The troponin3 were negative. Problem list along with assessment and plan #1 Atrial fibrillation with rapid ventricular response : Ct monitoring and evaluation advisor, her atrial fibrillation could be secondary to her infection, overall her [id number] score is 3, was on IV heparin will now switch eliquis 5 BID, started on rate control with po cardizem 30 q6 (shortage of iv cardizem), cardiology consult appreciated. - Per cardiology transition to Cardizem CD 120mg daily starting 09/03. - Repeat Echo pending. - Follow up with Dr. Finley after discharge #2 Suspected Pneumonia : Patient was started on IV ceftriaxone and azithromycin for suspected pneumonia due to presentation of cough, fever, bandemia, tachycardia,legionella and pnuemonia, flu antigen negative -continue IV ceftriaxone and azithromycin, continue to monitor vitals. #3 Aortic Stenosis : severe aortic stenosis with wall diameter of 0.6 cm, cardiology on board. #4 Hypothyroidism :tsh, ft4 within normal limit, ct current dose of synthroid. dnr/dni heart healthy diet dvt px with eliquis Problem List: 1. Rapid atrial fibrillation Pain Ratin Pain Location: n/a Pain Goal: Remain pain free Pain Plan: n/a Tomorrow's Labs & Rationales: mary Gee MD,Flori 09/02/17 1011: Attending MD Review Statement Attending Statement Attending MD Statement: examined this patient, discuss w/resident/PA/TEXTILE BAG SEWER, agreed w/resident/PA/TEXTILE BAG SEWER, discussed with family, reviewed EMR data (avail), discussed with nursing, reviewed images Attending Assessment/Plan: Patient is improving albeit slowly. Her heart rate is stable on the oral Cardizem. She has severe aortic stenosis, with treating her for community- acquired pneumonia with ceftriaxone and azithromycin and new onset A. fib with Cardizem 30mg every 6 and by mouth Eliquis. If she improves and I'm able to wean her off oxygen and the plan will be discharge home in a.m. on oral Eliquis and the CD preparation of Cardizem with outpatient follow-up with Dr. Jamil Kohler.
--- NOTE | 2017-09-02 09:23 | PN- Cardiology ---
Subjective Subjective: Stable, sitting in bedside chair, no new cardiac issues or symptoms. Rhythm stable. Objective Vital Signs and I&Os Vital Signs Date Time Temp Pulse Resp B/P B/P Pulse O2 O2 Flow FiO2 Mean Ox Delivery Rate 09/02 0654 98.2 84 20 110/68 96 Nasal 2.0L Cannula 09/02 0522 84 122/70 09/01 2325 89 126/64 09/01 2243 Nasal 1.0L Cannula 09/01 2200 98.4 101 18 126/64 97 Nasal Cannula 09/01 2039 96 Nasal 1.0L Cannula 09/01 1653 126/60 09/01 1434 98.2 95 18 120/60 93 09/01 1137 90 110/64 Intake & Output 09/02 1600 09/02 0000 09/01 1600 09/01 0800 09/01 0000 Intake Total 240 200 950 166.1 300 Output Total 500 300 500 850 Balance -260 -100 450 166.1 -550 Intake, IV 350 166.1 Intake, Oral 240 200 600 300 Number 0 Bowel Movements Output, Urine 500 300 500 850 Patient 151 lb 150 lb Weight Weight Bed scale Measurement Method Physical Exam: General Appearance: well developed/nourished, elderly female, alert, awake, oriented Head: normal HEENT: Normal Neck: supple, JVP normal, carotid upstrokes normal bilaterally, no masses or thyromegaly Respiratory: chest non-tender, scattered bilateral rhonchi Cardiovascular: regular rate/rhythm, normal S1, S2, 2-3/6 systolic ejection murmur Abdomen: normal bowel sounds, soft, non-tender Extremities: normal inspection, no edema Vascular: Pulses are 2+ and equal bilaterally Neurologic: Grossly normal/nonfocal Current Medications: Current Medications Sig/Denzel Start time Last Medication Dose Route Stop Time Status Admin Acetaminophen 325 MG ONCE ONE 09/01 2044 DC 09/01 PO 09/01 Albuterol Sulfate 3 ML BID 08/31 899 AC 09/02 INH 918 Apixaban 5 MG BID 09/01 113 AC 09/01 PO 2021 Azithromycin 500 MG DAILY 08/31 899 AC 09/01 Sodium Chloride 250 ML IV 804 Ceftriaxone Sodium 1,000 MG DAILY 08/31 899 AC 09/01 IV 08 Cholecalciferol 400 IU DAILY 08/31 899 AC 09/01 PO 0805 Diltiazem HCl 30 MG Q6 08/31 1715 AC 09/02 PO 0522 Heparin Sodium 25,000 UNIT Q24H 09/01 0115 DC 09/01 (Porcine) IV 0122 Sodium Chloride 500 ML Levothyroxine Sodium 0.05 MG 0600 09/01 0600 AC 09/02 PO 0519 Omeprazole 40 MG DAILY AC 08/31 0700 AC 09/02 PO 0519 Results Last 48 Hrs of Labs/Mics: Laboratory Tests 09/02/17 0620: Anion Gap 9, Estimated GFR 53 L, BUN/Creatinine Ratio 18.0 09/01/17 0651: Anion Gap 9, Estimated GFR 60, BUN/Creatinine Ratio 17.8, Magnesium 1.9, APTT 82 H, CBC w Diff NO MAN DIFF REQ, RBC 3.79 L, MCV 81.4, MCH 27.3, MCHC 33.5, RDW 13.9, MPV 9.3, Gran % 74.6, Lymphocytes % 17.6 L, Monocytes % 6.5, Eosinophils % 0.9, Basophils % 0.4, Absolute Granulocytes 8.2 H, Absolute Lymphocytes 1.9, Absolute Monocytes 0.7 H, Absolute Eosinophils 0.1, Absolute Basophils 0 09/01/17 0025: APTT 48 H Microbiology 08/31 1535 NASOPHARYN: Influenza Virus A & B Rapid Smear - COMP 08/31 1400 URINE ROUT: Legionella Antigen - COMP 08/31 1400 URINE ROUT: Streptococcus pneumoniae Antigen (M - COMP Assessment/Plan Assessment/Plan Assessment: 1. Paroxysmal atrial fibrillation-the patient is stable today, remains in a normal sinus rhythm 2. Pneumonia 3. Severe aortic stenosis 4. Hypothyroidism Recommendations: -Continue current cardiac medications. -Tomorrow, transition Cardizem to 120 mg p.o. C-D daily -Continue antibiotics as per the medical team -The patient will need close follow-up with Dr. Stef Finley post hospitalization.
[2017-09-02 14:14] VITALS: BP 106/50
[2017-09-02 22:37] VITALS: BP 118/60
[2017-09-03 06:53] VITALS: BP 94/54
[2017-09-03 06:54] VITALS: BP 120/70
--- NOTE | 2017-09-03 08:29 | PN- Housestaff ---
Marlen SANTANA,Flori 09/03/17 0921: Attending MD Review Statement Attending Statement Attending MD Statement: examined this patient, discuss w/resident/PA/ANIMAL NUTRITION CONSULTANT, agreed w/resident/PA/ANIMAL NUTRITION CONSULTANT, discussed with family, reviewed EMR data (avail), discussed with nursing, reviewed images Attending Assessment/Plan: Patient seen and examined. She feels markedly better. She is still coughing but it is better. Her heart rate is stable on the Cardizem CD.
[2017-09-03] MEDS ORDERED: AZITHROMYCIN250 M1 PO (09:23)
[2017-09-03] MEDS ORDERED: CARDIZEM CD120 M2 PO (09:24)
[2017-09-03] MEDS ORDERED: ELIQUIS5 M1 PO (09:24)
--- NOTE | 2017-09-03 09:28 | PN- Att Addend ---
Attending Addendum Attending Brief Note Patient seen and examined. She feels markedly better. She is still coughing but it is better. Her heart rate is stable on the Cardizem CD. On exam MAXIMUM TEMPERATURE is 98 6, blood pressure is 120/70, heart rate is 88 and she's breathing at 16-18. She is awake alert oriented, lungs have scattered crackles at the bases, heart is S1-S2 regular, abdomen is soft nontender and she has no edema. 82-year-old female past medical history of hypothyroidism and severe aortic stenosis was here with a community-acquired pneumonia and new onset rapid A. fib. She is doing markedly better but from a pulmonary standpoint and her heart rate. We'll discharge her on Cardizem CD 120 mg with the Eliquis for 3 more days of the antibiotic to complete a 7 day course for pneumonia. I spoke to her sister at length and she understands the need for close follow-up with Dr. Jamil Kohler given her ASM her A. fib. And I will also setting her up with home visiting nurse
[2017-09-03] MEDS ORDERED: PROAIR HFA8.5 GM INH (13:04)
--- NOTE | 2017-09-03 13:53 | PN- Cardiology ---
Subjective Subjective: The patient is doing well. Sitting in bedside chair. Awaiting discharge per Objective Vital Signs and I&Os Vital Signs Date Time Temp Pulse Resp B/P B/P Pulse O2 O2 Flow FiO2 Mean Ox Delivery Rate 09/03 1130 95 Room Air 09/03 0654 98.7 90 18 120/70 95 Room Air 09/03 0623 104 114/70 09/03 0006 96 118/60 09/03 0000 Room Air 09/02 2237 98.1 102 18 118/60 96 Room Air 09/02 2058 108 132/60 09/02 2009 94 Room Air Room Air 09/02 1600 Room Air 09/02 1414 98.1 89 18 106/50 94 Nasal Cannula Intake & Output 09/03 1600 09/03 0800 09/03 0000 09/02 1600 09/02 0800 09/02 0000 Intake Total 240 400 880 240 200 Output Total 1150 500 500 300 Balance -910 -100 880 -260 -100 Intake, IV 280 Intake, Oral 240 400 600 240 200 Output, Urine 1150 500 500 300 Patient 155 lb 151 lb Weight Weight Bed scale Bed scale Measurement Method Physical Exam: General Appearance: well developed/nourished, elderly female, alert, awake, oriented Head: normal HEENT: Normal Neck: supple, JVP normal, carotid upstrokes normal bilaterally, no masses or thyromegaly Respiratory: chest non-tender, scattered bilateral rhonchi Cardiovascular: regular rate/rhythm, normal S1, S2, 2-3/6 systolic ejection murmur Abdomen: normal bowel sounds, soft, non-tender Extremities: normal inspection, no edema Vascular: Pulses are 2+ and equal bilaterally Neurologic: Grossly normal/nonfocal Current Medications: Current Medications Sig/Denzel Start time Last Medication Dose Route Stop Time Status Admin Albuterol Sulfate 3 ML BID 08/31 899 AC 09/03 INH 1130 Apixaban 5 MG BID 09/01 1130 AC 09/03 PO 0855 Azithromycin 500 MG DAILY 08/31 899 AC 09/03 Sodium Chloride 250 ML IV 0851 Ceftriaxone Sodium 1,000 MG DAILY 08/31 899 AC 09/03 IV 0851 Cholecalciferol 400 IU DAILY 08/31 899 AC 09/03 PO 0855 Diltiazem HCl 120 MG DAILY 09/03 899 AC 09/03 PO 0855 Diltiazem HCl 30 MG Q6 08/31 1715 DC 09/03 PO 09/03 0700 0623 Levothyroxine Sodium 0.05 MG 0609/01 0600 AC 09/03 PO 0622 Omeprazole 40 MG DAILY AC 08/31 0700 AC 09/03 PO 0622 Sodium Chloride 2 SPRAY Q4P PRN 09/02 2030 AC ALMAZ Results Last 48 Hrs of Labs/Mics: Laboratory Tests 09/03/17 0615: Anion Gap 9, Estimated GFR 53 L, BUN/Creatinine Ratio 19.0 09/02/17 0620: Anion Gap 9, Estimated GFR 53 L, BUN/Creatinine Ratio 18.0 Assessment/Plan Assessment/Plan Assessment: 1. Paroxysmal atrial fibrillation-the patient is stable today, remains in a normal sinus rhythm 2. Pneumonia 3. Severe aortic stenosis 4. Hypothyroidism Recommendations: -Continue current cardiac medications. -Transition Cardizem to 120 mg p.o. C-D daily -Continue antibiotics as per the medical team -The patient will need close follow-up with Dr. Stef Finley post hospitalization. Continue telemetry? No
== END 2017-09-03 14:20 | disposition home health service (06) | DRG 195 ==
LOC: ERH 11:32 → ERHI 15:15 → 1NO 15:15 → ENRESERV 16:27 → ENTRNSPT 17:07 → EDTRNSPT 17:10 → 1NO 17:10 → CMPTRNSPT 17:21 → 1NO 08-31 11:57 → ENPENDDIS 09-03 09:26 → 1NO 09-03 14:20
PROVIDERS: Emergency Medicine; Internal Medicine; Internal Medicine Cardiovascular Disease
DX: J18.9 Pneumonia, unspecified organism (principal); E03.9 Hypothyroidism, unspecified; R01.1 Cardiac murmur, unspecified; K21.9 Gastro-esophageal reflux disease without esophagitis; I35.0 Nonrheumatic aortic (valve) stenosis; Z90.49 Acquired absence of other specified parts of digestive tract; J45.909 Unspecified asthma, uncomplicated; Z88.0 Allergy status to penicillin; Z91.048 Other nonmedicinal substance allergy status; Z66 Do not resuscitate; J20.9 Acute bronchitis, unspecified; I48.0 Paroxysmal atrial fibrillation
CPT/HCPCS: 1NSP; 36415; 36592; 71045; 82436; 87040; 87070; 87071; 87147; 87449; 87450; 87804; 87804-59; 93005; 93010; 96361; 96365; 96375; 99291; J0456; J0696; J1644; J7040